=== PATIENT | female | born 1960 | race Caucasian/White ===

== ENCOUNTER 2022-03-19 16:35 | Outpatient (CLI) | payer BC, SELFPAY ==
--- NOTE | 2022-03-19 16:45 | CRLHL7_ITS ---
For Patients: As a result of the Century Cures Act, medical imaging exams and procedure reports are released immediately into your electronic medical record. You may view this report before your referring provider. If you have questions, please contact your health care provider. BILATERAL SCREENING MAMMOGRAM WITH COMPUTER-AIDED DETECTION AND TOMOSYNTHESIS TECHNIQUE: CC and MLO views were obtained. These mammographic images have been obtained using full-field digital technique. These mammographic images were interpreted with the benefit of computer-aided detection. Breast Tomosynthesis was used in this interpretation. COMPARISON FILM: 02/28/21, 02/18/20, 02/11/19. FINDINGS: The breasts are almost entirely fatty IMPRESSION: There is no radiographic evidence for malignancy. ASSESSMENT: BI-RADS Category 1: Negative RECOMMENDATION: Routine screening mammogram in 1 year. A lay language report of this examination will be provided to the patient. Milton Campo M.D. Diagnostic Radiologist [email or web address] Transcribed: 4:07 pm DW/Dictated by: Milton Campo MD @ 03/20/2022 1:14:00 PM (Electronically Signed)
== END 2022-03-19 16:36 | disposition home or self-care (01) ==
PROVIDERS: PCP Family Medicine; Visit Provider Family Medicine
DX: Z12.31 Encounter for screening mammogram for malignant neoplasm of breast (principal)
CPT/HCPCS: 77063; 77067

== ENCOUNTER 2022-05-23 17:49 | Emergency (ER) | payer BC, SELFPAY ==
[2022-05-23] VITALS (7 sets, daily range): BP systolic 126–137; BP diastolic 77–85; PULSE 97–117; RESP 20–21; TEMP 37.7; O2SAT 96–98; BMI 37.9
--- NOTE | 2022-05-23 18:55 | ED_ITS ---
HPI - General Adult General Chief complaint: Abdominal Pain Stated complaint: Tobiasrea, Vomiting Time Seen by Provider: 05/23/22 18:49 History of Present Illness HPI narrative: This 62-year-old female comes in reporting vomiting and diarrhea throughout the course of this day. She states that she has had numerous occasions of each and feels like her mouth is dry. She used a thermometer at home and measured a temperature in her ear at 103? F. She has not taken any medicines. She arrives here with a temperature at 99.9? F. Her heart rate is increased with a pulse of 117 beats per minute. Prior to this she has been in good health. She does not report much abdominal discomfort. She denies having any blood in the toilet. Related Data Previous Rx's Medication Instructions Recorded losartan 50 mg tablet 50 mg PO QDAY #60 tabs 04/29/22 simvastatin 20 mg tablet 20 mg PO QHS #60 tabs 04/29/22 ondansetron HCl 4 mg tablet 4 mg PO Q6H #20 tabs 05/23/22 Allergies Allergy/AdvReac Type Severity Reaction Status Date / Time codeine Allergy Intermediate Nausea Verified 05/23/22 17:57 hydrochlorothiazide Allergy Intermediate pruritic Verified 05/23/22 17:57 rash lisinopril Allergy Intermediate Cough Uncoded 04/29/22 15:36 Review of Systems Status of ROS: Reports: 10 or more systems reviewed and unremarkable except as noted in History and below Narrative: Constitutional: No fevers, no weight gain or loss. Eyes: No discharge. No vision changes. HENT: No congestion, no sore throat, no ear pain. Cardiovascular: No chest pain, no palpitations. Respiratory: No shortness of breath, no wheezes, no cough. Gastrointestinal: Recurrent vomiting and diarrhea. Genitourinary: No dysuria, no hematuria. Musculoskeletal: Normal range of motion. Skin: No rashes, no pruritis. Neurological: No dizziness, weakness, sensory change, speech change. Endo/Heme/Allergies: No bruising or bleeding. No polydipsia. Pysch: no suicidality, no anxiety, no insomnia. All other systems reviewed and are negative. PFSH PFSH Social History Smoking Status: Never smoker Do you use any of these nicotine containing products: None Second hand tobacco smoke exposure: No How often do you have a drink containing alcohol: never How often do you have six or more drinks on one occasion: Never AUDIT-C Alcohol total score: 0 Non-prescribed substance use: denies use service: No Exam Narrative: Exam Narrative: Constitutional: Well-developed, well-nourished, no acute distress. HEENT: Normocephalic, atraumatic. Neck: Normal range of motion. Nontender. Supple. Heart: Regular. No murmurs. Tachycardia, rate 117 beats per minute. Intact distal pulses. Lungs: Clear to auscultation. No chest discomfort. No wheezes, rhonchi, or rales. Abdomen: Normal bowel sounds. Nontender. No rebound tenderness. Genitalia: Deferred. Back: No midline tenderness. Normal range of motion. Extremities: Normal range of motion. No injury. Skin: Intact. No rash. Warm. No erythema or pallor. Neurologic: No altered sensation. No weakness. Alert and oriented. Psychiatric: No suicidality. No anxiety or depression. No insomnia. Nursing notes and vitals signs are reviewed. Const: Vital Signs, click to edit/add: Vital Signs - 24 hr 05/23/22 17:54 05/23/22 19:32 05/23/22 19:32 Temperature 99.9 F H Pulse Rate 99 Pulse Rate [Pulse Oximeter] 117 H 101 H Respiratory Rate 21 20 Blood Pressure 126/83 Blood Pressure [Ri ght Upper Arm] 130/85 126/83 Pulse Oximetry 98 96 98 Oxygen Delivery Me thod Room Air Room Air 05/23/22 19:33 05/23/22 19:45 Temperature Pulse Rate 97 97 Pulse Rate [Pulse Oximeter] Respiratory Rate Blood Pressure Blood Pressure [Ri ght Upper Arm] Pulse Oximetry 97 96 Oxygen Delivery Me thod Course Vital Signs Vital signs: Initial Vital Signs Temperature 99.9 F H 05/23/22 17:54 Temperature Source Temporal Artery Scan 05/23/22 17:54 Pulse Rate 117 H 05/23/22 17:54 Pulse Rhythm 05/23/22 17:54 Pulse Strength 3+ Normal 05/23/22 17:54 Respiratory Rate 21 05/23/22 17:54 Blood Pressure 130/85 05/23/22 17:54 Blood Pressure Mean 100 05/23/22 17:54 Blood Pressure Position Sitting 05/23/22 17:54 Pulse Oximetry 98 05/23/22 17:54 Oxygen Delivery Method 05/23/22 17:54 Vital Signs Temperature 99.9 F H 05/23/22 17:54 Pulse Rate 117 H 05/23/22 17:54 Respiratory Rate 21 05/23/22 17:54 Blood Pressure 130/85 05/23/22 17:54 Pulse Oximetry 98 05/23/22 17:54 Oxygen Delivery Method 05/23/22 17:54 Temperature 99.9 F H 05/23/22 17:54 Pulse Rate 97 05/23/22 19:45 Respiratory Rate 20 05/23/22 19:32 Blood Pressure 126/83 05/23/22 19:32 Pulse Oximetry 96 05/23/22 19:45 Oxygen Delivery Method 05/23/22 19:32 Medical Decision Making MDM Narrative Medical decision making narrative: This patient arrives with persistent vomiting and diarrhea throughout the course of this day. An IV was established and labs were drawn. She received a L of normal saline along with 4 mg of Zofran intravenously. She no longer had any episodes of vomiting or diarrhea. She states that she is feeling better. Lab results returned with normal findings. At the time of discharge the patient appears safe for outpatient management. The treatment plan is reviewed along with written and verbal return precautions. Reasons to return and the importance of close followup were also reviewed. The patient received a prescription for Zofran. She is encouraged to use Imodium as needed and directed also. Lab Data Labs: Lab Results 05/23/22 05/23/22 Range/Units 19:20 19:20 WBC 9.97 (4.50-11.00) K/uL RBC 5.35 H (4.00-5.20) m/uL Hgb 15.1 (12.0-16.0) gm/dL Hct 44.8 (33.0-51.0) % MCV 84 (80-100) fL MCH 28 (26-34) pg MCHC 34 (32-36) gm/dL RDW Coeff of Lexii 13.1 (11.5-15.5) % Plt Count 204 (140-440) K/uL Neut % (Auto) 94.3 H (42.0-72.0) % Lymph % (Auto) 3.2 L (20-44) % [place] % (Auto) 2.3 (0.0-11.0) % Eos % (Auto) 0.0 (0.0-7.0) % Baso % (Auto) 0.1 (0.0-3.0) % Neut # (Auto) 9.40 H (1.7-7.0) K/uL Lymph # (Auto) 0.30 L (0.90-2.90) K/uL [place] # (Auto) 0.20 (0.00-0.90) K/UL Eos # (Auto) 0.00 (0.00-0.50) K/uL Baso # (Auto) 0.01 (0.00-0.30) K/uL Sodium 139 (135-149) mmol/L Potassium 3.7 (3.6-5.1) mmol/L Chloride 106 (96-114) mmol/L Carbon Dioxide 24 (20-32) mmol/L BUN 17 (7-30) mg/dL Creatinine 0.7 (0.5-1.5) mg/dL Estimated Creat Clear 80.01 Estimated GFR 99 ml/min Glucose 135 H (60-115) mg/dL Calcium 8.9 (8.4-10.6) mg/dL Discharge Plan Discharge Clinical Impression: Gastroenteritis Patient Disposition: Home, Self-Care Condition: Improved Additional Instructions: Take small sips of fluids frequently. Increase diet as tolerated. Use medication as needed and indicated for nausea. Follow up with MD or return if worsening. Prescriptions: New ondansetron HCl 4 mg tablet 4 mg PO Q6H Qty: 20 0RF No Action losartan 50 mg tablet 50 mg PO QDAY Qty: 60 0RF simvastatin 20 mg tablet 20 mg PO QHS Qty: 60 0RF Follow Up/Referrals: Dante Simons MD [Primary Care Provider] - Stand Alone Forms: [employer] Info Instructions
[2022-05-23] MEDS: ONDANSETRON 2 MG/ML inj 4 MG IVP (19:22)
[2022-05-23] MEDS: 0.9 % SODIUM CHLORIDE 1000 ml 1,000 ML IV (19:22)
[2022-05-23 19:30] LABS: Basophils Absolute Auto 0.01 K/uL (0.00-0.30); Basophils Percent Auto 0.1 % (0.0-3.0); Hematocrit 44.8 % (33.0-51.0); Hemoglobin* 15.1 gm/dL (12.0-16.0); Immature Granulocytes Abs Auto 0.01 K/uL (0.00-0.30); Immature Granulocytes Pct Auto 0.1 %; Lymphocytes Percent Auto 3.2 % (20-44); Mean Corpuscular HGB Conc 34 gm/dL (32-36); Mean Corpuscular Hemoglobin 28 pg (26-34); Mean Corpuscular Volume 84 fL (80-100); Monocytes Percent Auto 2.3 % (0.0-11.0); Neutrophils Percent Auto 94.3 % (42.0-72.0); Platelet Count* 204 K/uL (140-440); RDW Coefficient of Variation % 13.1 % (11.5-15.5); Red Blood Count 5.35 m/uL (4.00-5.20); White Blood Count* 9.97 K/uL (4.50-11.00)
[2022-05-23 19:37] LABS: Slide Review Reflex No
[2022-05-23 19:48] LABS: Chloride* 106 mmol/L (96-114)
[2022-05-23 19:49] LABS: Potassium* 3.7 mmol/L (3.6-5.1); Sodium* 139 mmol/L (135-149)
[2022-05-23 19:51] LABS: Carbon Dioxide* 24 mmol/L (20-32); Creatinine* 0.7 mg/dL (0.5-1.5); Est. Creatinine Clearance* 80.01; Estimated Glomerular Filt Rate 99 ml/min
[2022-05-23 19:52] LABS: Blood Urea Nitrogen* 17 mg/dL (7-30); Calcium* 8.9 mg/dL (8.4-10.6); Glucose* 135 mg/dL (60-115)
== END 2022-05-23 20:38 | disposition home or self-care (01) ==
PROVIDERS: Emergency Provider Emergency Medicine Emergency Medical Services; PCP Family Medicine
DX: K52.9 Noninfective gastroenteritis and colitis, unspecified (principal)
CPT/HCPCS: 36415; 80048; 85025; 96374; 99283; 99284; J2405; J7030

== ENCOUNTER 2022-07-16 08:03 | Outpatient (CLI) | payer BC, SELFPAY | END 2022-07-16 08:04 | disposition home or self-care (01) | LOC: NFLDREF 21:47 | PROVIDERS: PCP Family Medicine; Referring Provider Family Medicine; Visit Provider Family Medicine | DX: E78.5 Hyperlipidemia, unspecified (principal); I10 Essential (primary) hypertension | CPT/HCPCS: 80053; 80061 ==

== ENCOUNTER 2022-11-21 07:11 | Outpatient (CLI) | payer BC, SELFPAY ==
--- NOTE | 2022-11-21 08:30 | W.ANESCHARGE ---
Anesthesia Charges Start Date/Time Anesthesia Start Date: 11/21/22 Anesthesia Start Time: 07:55 Stop Date/Time Anesthesia Stop Date: 11/21/22 Anesthesia Stop Time: 08:28
--- NOTE | 2022-11-21 08:35 | W.ANESCHARGE ---
Anesthesia Charges Start Date/Time Anesthesia Start Date: 11/21/22 Anesthesia Start Time: 07:55 Stop Date/Time Anesthesia Stop Date: 11/21/22 Anesthesia Stop Time: 08:28
== END 2022-11-21 07:12 | disposition home or self-care (01) ==
LOC: OP CLINIC 07:11
PROVIDERS: PCP Family Medicine; Visit Provider Surgery
DX: Z12.11 Encounter for screening for malignant neoplasm of colon (principal); K57.30 Diverticulosis of large intestine without perforation or abscess without bleeding
CPT/HCPCS: 45378; 811; 812; J2704

== ENCOUNTER 2023-09-10 20:40 | Emergency (ER) | payer BC, SELFPAY ==
[2023-09-10 21:03] VITALS: BP 177/95; PULSE 0; RESP 16; TEMP 36.1; O2SAT 98; BMI 37.9
--- NOTE | 2023-09-10 23:32 | ED_ITS ---
HPI - General Adult General Date Seen: 09/10/23 Chief complaint: Extremity Pain/Injury, Lower Stated complaint: R leg, swelling, pain and red [place] Time Seen by Provider: 09/10/23 23:21 History of Present Illness HPI narrative: This is a 63-year-old female with a history cervical radiculopathy, incisional hernia, splenomegaly, hyperlipidemia, hypertension, presents to the ER today presenting to the ER today for evaluation of a red bump on the back of her right leg. She noticed noticed this morning when she was putting her pants her felt like there was a foreign object like possibly a drier operator head she in the leg of her jeans. She does not recall having any bug bite or any specific pain at that time. She went to work today did her normal work day. this evening at about 5:15 p.m she was at home when she noticed that she had at increasingly painful, itchy burning area on the back of her right popliteal fossa. She took off her pants and noted a couple of blisters there and a reddened area on the medial aspect of the popliteal fossa. She is not having any fever or chills. No body aches. She does have a headache (not a severe headache-she says she would normally take ibuprofen for headache like this). She and her are planning on a camping trip and are planning to leave in 2 days. He encouraged to come directly to the ER so she can get treated for this so that it does not get worse or room their planned trip. She has not had any recent exposure to long grass or son. No known tick exposures. No known insect bites although it is possible that what she felt as a drier operator head sheets in her pants this morning could been a bug. She did not see one. Related Data Previous Rx's ?Medication ?Instructions ?Recorded losartan 50 mg tablet 50 mg PO QDAY #90 tabs 07/19/22 simvastatin 20 mg tablet 20 mg PO QHS #90 tabs 07/19/22 Allergies Allergy/AdvReac Type Severity Reaction Status Date / Time codeine Allergy Intermediate Nausea Verified 07/15/23 16:34 hydrochlorothiazide Allergy Intermediate pruritic Verified 07/15/23 16:34 rash lisinopril Allergy Unknown Cough Verified 07/15/23 16:34 [facility] Medical History (Updated 09/10/23 @ 23:45 by Chema Murguia MD) Encounter for annual physical exam ?Z00.00 - Encounter for general adult medical examination without abnormal findings (ICD-10) Family History (Updated 07/17/22 @ 09:31 by Angelica Tinajero ~ PSR) Mother Heart disease, Onset Age: 42 Family/Other Heart disease Social History Smoking Status: Never smoker Do you use any of these nicotine containing products: None Second hand tobacco smoke exposure: No How often do you have a drink containing alcohol: never How often do you have six or more drinks on one occasion: Never AUDIT-C Alcohol total score: 0 Non-prescribed substance use: denies use Little interest or pleasure in doing things: not at all Feeling down, depressed, or hopeless: not at all service: No Exam Narrative: Exam Narrative: Constitutional: Appears well-developed and well-nourished. Active. Non-toxic appearing. Very polite. HENT: Head: Atraumatic. No signs of injury. Nose: No nasal discharge. Mouth/Throat: Mucous membranes are moist. Pharynx is normal. Tonsils symmetric. Uvula midline. Airway patent. Eyes: Conjunctivae normal and EOM are normal. Pupils are equal, round, and reactive to light. Right eye exhibits no discharge. Left eye exhibits no discharge. No icterus. Neck: Normal range of motion. Neck supple. No adenopathy. No stridor. Cardiovascular: Normal rate and regular rhythm. No murmur heard. No murmurs, rubs, or gallops. Brisk capillary refill Pulmonary/Chest: Effort normal. No stridor. No respiratory distress. No wheezes.No rhonchi. No rales. No retractions. Abdominal: Soft. Bowel sounds are normal. No distension. No mass. There is no tenderness. There is no rebound and no guarding. Musculoskeletal: Normal range of motion. No edema. No tenderness. No deformity. Neurological: Alert. Normal strength. No cranial nerve deficit or sensory deficit. Coordination normal. GCS eye subscore is 4. GCS verbal subscore is 5. GCS motor subscore is 6. Skin: Skin is warm, , dry, pink, well perfused. No rashes other than on the posterior right leg in the popliteal fossa on the medial aspect there is a oval- shaped pruritic erythematous rash that is roughly 4 x 6 cm in dimension. In the center of this rash there is a narrow reddened indurated inflamed area that is about 0.5 cm x 2 cm in size. There are 2 vesicular lesions on this narrow inflamed to streak. No palpable fluctuance. No purulent drainage. There is some clearish liquid on the surface of the rash which turns out to be topical antibiotic ointment that the patient had applied prior to arrival. No other rashes. No hives. No desquamating lesions. Const: Vital Signs, click to edit/add: Vital Signs - 24 hr 09/10/23 21:03 Temperature 97.0 F L Pulse Rate [Left P ulse Oximeter] 0 L Respiratory Rate 16 Blood Pressure [Ri ght Upper Arm] 177/95 H Pulse Oximetry 98 Oxygen Delivery Me thod Room Air Course Vital Signs Vital signs: Initial Vital Signs Temperature 97.0 F L 09/10/23 21:03 Temperature Source Temporal Artery Scan 09/10/23 21:03 Pulse Rate 0 L 09/10/23 21:03 Pulse Rhythm Regular 09/10/23 21:03 Respiratory Rate 16 09/10/23 21:03 Blood Pressure 177/95 H 09/10/23 21:03 Blood Pressure Mean 122 H 09/10/23 21:03 Blood Pressure Position Sitting 09/10/23 21:03 Pulse Oximetry 98 09/10/23 21:03 Oxygen Delivery Method Room Air 09/10/23 21:03 Vital Signs Temperature 97.0 F L 09/10/23 21:03 Pulse Rate 0 L 09/10/23 21:03 Respiratory Rate 16 09/10/23 21:03 Blood Pressure 177/95 H 09/10/23 21:03 Pulse Oximetry 98 09/10/23 21:03 Oxygen Delivery Method Room Air 09/10/23 21:03 Temperature 97.0 F L 09/10/23 21:03 Pulse Rate 0 L 09/10/23 21:03 Respiratory Rate 16 09/10/23 21:03 Blood Pressure 177/95 H 09/10/23 21:03 Pulse Oximetry 98 09/10/23 21:03 Oxygen Delivery Method Room Air 09/10/23 21:03 Medical Decision Making MDM Narrative Medical decision making narrative: This patient presents for evaluation of painful, burning, red skin lesion on her right popliteal fossa. She 1st noticed it this evening but it may actually been present since this morning. Exam would be most suggestive for probable localized reaction to an insect bite or sting. Given the amount of pain she is having I do not think this represents erythema migrans or Lyme disease. Differential would also include inspection such as cellulitis, abscess. Would be impossible to completely exclude a bacterial cellulitis at this point. There is no palpable abscess. No evidence for any crepitus or gas in the soft tissue to suggest necrotizing infection. She is not febrile and she is hemodynamically stable. There do not appear at this time to be any complication of cellulitis including abscess, necrotizing fascitis, lymphangitis, lymphadenitis, osteomyelitis, sepsis, or shock. The patient is not immunosuppressed or diabetic. Discussed that management for bug bite would be supportive with NSAI Ds and antihistamines, ice packs and monitoring. Will also cover her cellulitis with a course of cephalexin. Cephalexin 500 mg t.i.d. for 7 days prescribed through [facility]. The patient is instructed to follow-up with primary care physician to ensure no progression and rapid resolution and given precautions to return if high fever, spread greater than 2cm outside of the marked area, worsening pain, vomiting or any other worsening. Questions answered and return precautions reviewed. Discharge Plan Discharge Clinical Impression: Cellulitis of right lower extremity Patient Disposition: Home, Self-Care Condition: Stable Instructions: Cellulitis (ED), Insect Bite or Sting (ED) Additional Instructions: As we discussed, at this time it is not clear whether this lesion is due to an insect bite or could be due to an infection. To treat for insect bite, you can use ibuprofen her Benadryl to help treat the symptoms. Use an ice pack for 20 minutes every few hours to help to reduce the itching and pain and swelling. We are going to place you on [id number] cover for possible skin infection as well. If you have worsening redness, spreading redness, worsening pain, high fever, or any concerns, please come back to the ER right away to be rechecked. If you are not clearly improved within 3-4 days, please recheck with her regular doctor (or come back to the ER). Prescriptions: No Action losartan 50 mg tablet 50 mg PO QDAY Qty: 90 4RF simvastatin 20 mg tablet 20 mg PO QHS Qty: 90 4RF Follow Up/Referrals: Dante Simons MD [Primary Care Provider] - Stand Alone Forms: [employer] Info Instructions
== END 2023-09-11 00:04 | disposition home or self-care (01) ==
LOC: ED 23:51
PROVIDERS: Emergency Provider Emergency Medicine; PCP Family Medicine
DX: L03.115 Cellulitis of right lower limb (principal)
CPT/HCPCS: 99282; 99283

== ENCOUNTER 2023-10-12 18:36 | Emergency (ER) | payer BC, SELFPAY ==
[2023-10-12 18:42] VITALS: BP 152/82; PULSE 87; RESP 14; TEMP 36.6; O2SAT 99; BMI 37.0
--- NOTE | 2023-10-12 19:08 | ED.GENADULT ---
HPI - General Adult General Chief complaint: Extremity Pain/Injury, Lower Stated complaint: left knee pain Time Seen by Provider: 10/12/23 18:55 Source: patient Mode of arrival: ambulatory Limitations: no limitations History of Present Illness HPI narrative: 63-year-old female coming in today complaining of left-sided knee pain. She states that she heard a bowling approximately 3 months ago. She felt like it was getting better however in the last week she has had increased activity in her home and the knee pain has gotten worse again. Pain is located over the lateral knee radiates into the back of the knee. Activity makes it worse, standing on her feet for long periods of time makes it worse. She denies any swelling of the extremity. No recent travel or surgery. She denies any systemic symptoms. Patient has been seen for this knee pain by primary care as well as Orthopedics. She states that x-rays were done and were negative. Related Data Home Medications ?Medication ?Instructions ?Recorded ?Confirmed aspirin 81 mg tablet,delayed 81 mg PO QDAY 09/17/23 09/17/23 release cephalexin 500 mg capsule 500 mg PO TID 09/17/23 09/17/23 Previous Rx's ?Medication ?Instructions ?Recorded losartan 50 mg tablet 50 mg PO QDAY #90 tabs 07/19/22 simvastatin 20 mg tablet 20 mg PO QHS #90 tabs 07/19/22 celecoxib 200 mg capsule 200 mg PO QDAY #14 caps 09/17/23 ketorolac 10 mg tablet 10 mg PO TID PRN pain 5 days #15 10/12/23 tabs Allergies Allergy/AdvReac Type Severity Reaction Status Date / Time codeine Allergy Intermediate Nausea Verified 09/17/23 11:34 hydrochlorothiazide Allergy Intermediate pruritic Verified 09/17/23 11:34 rash lisinopril Allergy Unknown Cough Verified 09/17/23 11:34 Review of Systems Status of ROS: Reports: 10 or more systems reviewed and unremarkable except as noted in History and below [facility] Medical History Diverticulitis of intestine ?K57.92 - Diverticulitis of intestine, part unspecified, without perforation or abscess without bleeding (ICD-10) COVID-19 ?U07.1 - COVID-19 (ICD-10) Surgical History History of incisional hernia repair ?Z98.890 - Other specified postprocedural states (ICD-10) ?Z87.19 - Personal history of other diseases of the digestive system (ICD-10) Status post ovarian cystectomy ?Z98.890 - Other specified postprocedural states (ICD-10) ?Z87.42 - Personal history of other diseases of the female genital tract (ICD-10) Family History Mother Heart disease, Onset Age: 42 Family/Other Heart disease Social History Smoking Status: Never smoker Do you use any of these nicotine containing products: None Second hand tobacco smoke exposure: No How often do you have a drink containing alcohol: never How often do you have six or more drinks on one occasion: Never AUDIT-C Alcohol total score: 0 Non-prescribed substance use: denies use Little interest or pleasure in doing things: not at all Feeling down, depressed, or hopeless: not at all service: No Exam Narrative: Exam Narrative: Well-nourished well-developed patient in no acute distress. Alert and oriented. Answers questions appropriately. Mood and affect are appropriate. Thoughts are goal oriented and rational. No tangential or magical thinking noted. Patient speaks in full sentences without needing to catch her breath. HEENT: Normocephalic atraumatic. Pupils are equally round reactive to light. Extraocular muscles are intact. Conjunctivae are moist without any icterus noted. Moist mucous membranes. Extremities: Knees have normal appearance bilaterally. There is no evidence of swelling or erythema. There is no obvious joint effusion on palpation. She has full range of motion of flexion and extension. She has no pain along the medial or lateral joint line. She has no pain with compression of the patella. No varus or valgus laxity. Anterior drawer is negative. She has normal DP and PT pulses. Const: Vital Signs, click to edit/add: Vital Signs - 24 hr 10/12/23 18:42 Temperature 97.8 F Pulse Rate [Pulse Oximeter] 87 Respiratory Rate 14 Blood Pressure [Ri ght Upper Arm] 152/82 H Pulse Oximetry 99 Oxygen Delivery Me thod Room Air Course Vital Signs Vital signs: Initial Vital Signs Temperature 97.8 F 10/12/23 18:42 Temperature Source Temporal Artery Scan 10/12/23 18:42 Pulse Rate 87 10/12/23 18:42 Pulse Rhythm Regular 10/12/23 18:42 Respiratory Rate 14 10/12/23 18:42 Blood Pressure 152/82 H 10/12/23 18:42 Blood Pressure Mean 105 10/12/23 18:42 Blood Pressure Position Sitting 10/12/23 18:42 Pulse Oximetry 99 10/12/23 18:42 Oxygen Delivery Method Room Air 10/12/23 18:42 Vital Signs Temperature 97.8 F 10/12/23 18:42 Pulse Rate 87 10/12/23 18:42 Respiratory Rate 14 10/12/23 18:42 Blood Pressure 152/82 H 10/12/23 18:42 Pulse Oximetry 99 10/12/23 18:42 Oxygen Delivery Method Room Air 10/12/23 18:42 Temperature 97.8 F 10/12/23 18:42 Pulse Rate 87 10/12/23 18:42 Respiratory Rate 14 10/12/23 18:42 Blood Pressure 152/82 H 10/12/23 18:42 Pulse Oximetry 99 10/12/23 18:42 Oxygen Delivery Method Room Air 10/12/23 18:42 Medical Decision Making MDM Narrative Medical decision making narrative: 63-year-old female with knee pain. Differential diagnosis includes arthritis, Stone cyst, minor meniscus injury. There does not appear to be any ligamentous injury given her normal physical exam. We discussed symptomatic treatment with modifying physical activity, the use of NSAIDs. Recommend she follow up she feels like she is getting worse over the next several weeks instead of better. Patient was in agreement and had no other questions. Discharge Plan Discharge Clinical Impression: Knee pain Patient Disposition: Home, Self-Care Condition: Stable Additional Instructions: Use jose wrap for support. Ok to use Ibuprofen 600-800mg three times per day as needed, always on a full stomach. If pain does not respond - okay to use Toradol. You knew this is also an anti-inflammatory that can upset the stomach, therefore this should also be used on a full stomach. Prescriptions: New ketorolac 10 mg tablet 10 mg PO TID PRN (Reason: pain) 5 Days Qty: 15 0RF No Action cephalexin 500 mg capsule 500 mg PO TID aspirin 81 mg tablet,delayed release (DR/EC) 81 mg PO QDAY celecoxib 200 mg capsule 200 mg PO QDAY Qty: 14 1RF losartan 50 mg tablet 50 mg PO QDAY Qty: 90 4RF simvastatin 20 mg tablet 20 mg PO QHS Qty: 90 4RF Follow Up/Referrals: Dante Simons MD [Primary Care Provider] - Stand Alone Forms: [facility] Info Instructions
== END 2023-10-12 19:25 | disposition home or self-care (01) ==
LOC: ED 19:17
PROVIDERS: Emergency Provider Family Medicine; PCP Family Medicine
DX: M25.562 Pain in left knee (principal)
CPT/HCPCS: 99283

== ENCOUNTER 2023-10-19 20:50 | Emergency (ER) | payer BC, SELFPAY ==
--- NOTE | 2023-10-19 21:06 | CRLHL7_ITS ---
For Patients: As a result of the Century Cures Act, medical imaging exams and procedure reports are released immediately into your electronic medical record. You may view this report before your referring provider. If you have questions, please contact your health care provider. Indication: Knee pain. Technique: Right knee 3 views. Comparison: 07/15/2023. Findings: Bones: Normal alignment. Questionable cortical irregularity of the posterior proximal fibular metaphysis. No aggressive osseous lesion. Joint spaces: Very mild medial and patellofemoral compartment degenerative changes. No joint effusion Soft tissues: Unremarkable. Impression: Questionable nondisplaced fracture of the posterior proximal fibular metaphysis. Recommend correlation with site for focal tenderness. No other acute findings. Dictated by Chema Pérez MD @ 10/19/2023 10:17:29 PM (Electronically Signed)
[2023-10-19 21:11] VITALS: BP 167/84; PULSE 80; RESP 16; TEMP 36.6; O2SAT 100; BMI 37.0
--- OUTSIDE RECORDS SUMMARY | 2023-10-19 22:01 | XMS_ITS | Clinical Summary ---
Author Organization [facility] Address [address] [place] [address] Care Team Providers Care Landing Signal Officer Name Role Phone Unavailable Primary Care Provider Unavailabl e Allergies Active Allergy Reactions Criticality Noted Date Comments Morphine And Codeine Nausea 06/12/2005 Medications Medication Sig Dispensed Refills Start Date End Date Status ASPIRIN 81 MG OR TABSIndications:Ches t pain, unspecified 1 tab po now 1 3 06/12/2005 Active Additional Information Patient not taking.Reported on 12/29/2017 TYLENOL 325 MG OR TABS 2 TABLETS EVERY 4 HOURS NEEDED Active LISINOPRIL PO Take 10 mg by mouth daily Active Cyanocobalamin (B-12) 1000 MCG CAPS Acti ve potassium 99 MG TABS Acti ve Multiple Vitamins-Minerals (MULTI FOR HER) TABS Acti ve Ibuprofen-Diphenhydr amine Cit (ADVIL PM PO) Active triamcinolone (KENALOG) 0.1 % ointment Apply topically 2 times daily Active Camphor-Menthol (SARNA EX) Active Active Problems No known active problems Immunizations Name Administration Dates Next Due TDAP Vaccine (Adacel) 10/15/2016 Family History Medical History Relation Comments Melanoma No family hx of Skin Cancer No family hx of Social History Tobacco Use Types Packs/Day Years Used Date Smoking Tobacco: Never Smokeless Tobacco: Never PHQ-2 Answer Date Recorded PHQ-2 Score 0 12/29/2017 Adolescent Education Answer Date Record ed Getting School Help Needed Not on file 01/11 Sex and Gender Information Value Date Recorded Sex Assigned at Not on file Gender Identity Not on file Sexual Orientation Not on file Last Filed Vital Signs Vital Sign Reading Time Taken Comments Blood Pressure 142/93 12/29/2017 9:40 AM CDT Pulse 98 12/29/2017 9:40 AM CDT Temperature 37.2 ??C (99 ??F) 07/02/2005 5:00 PM DOOR CUTTER Respiratory Rate 16 07/02/2005 5:00 PM DOOR CUTTER Oxygen Saturation 96% 07/02/2005 5:00 PM DOOR CUTTER Inhaled Oxygen Concentration - - Weight 100.7 kg (222 lb) 07/02/2005 5:00 PM DOOR CUTTER Height 167.6 cm (5' 6) 07/02/2005 5:00 PM DOOR CUTTER Body Mass Index 35.83 07/02/2005 5:00 PM DOOR CUTTER Plan of Treatment Not on file Sabiha Mayo Personal/Family Self [address] [address]
--- OUTSIDE RECORDS SUMMARY | 2023-10-19 22:01 | XMS_ITS | Clinical Summary ---
[facility] Address [address] [address] Care Team Providers Care Room Service Attendant Name Role Phone Doretha Quintero MD Primary Care Provider [phone] Source Comments You are receiving this document as you are listed as the primary care provider,follow-up provider, or the patient has been referred to you for consultation.This is in compliance with the Medicare and[facility] EHR Incentive Program,which states Providers who transition their patient to another setting of careor provider of care or refers their patient to another provider of care shouldprovide summary care record for each transition of care or referral. [employer] Allergies Active Allergy Reactions Criticality Noted Date Comments Codeine 11/12/2017 Medications Medication Sig Dispensed Refills Start Date End Date Status fluconazole (DIFLUCAN) 150 MG tablet Take 150 mg by mouth once a week. Active hydrOXYzine HCl (ATARAX) 25 MG tablet Take 25 mg by mouth three times a day as needed. Active hydroCHLOROthiazide (ORETIC) 12.5 MG tablet Take 12.5 mg by mouth daily. Active cyanocobalamin (VITAMIN B12) 1000 MCG tablet Take 1,000 mcg by mouth daily. Active Ibuprofen-Diphenhyd ramine Cit (ADVIL PM OR) daily at bedtime. Active Multiple Vitamin (MULTIVITAMINS OR) Active triamcinolone acetonide (KENALOG) 0.1 % ointment Apply topically two times a day. 80 g 11 11/12/2017 Active Cefadroxil (DURICEF) 500 MG capsule Take 1 Capsule by mouth two times a day. 14 Capsule 11/15/2017 Active Active Problems No known active problems Social History Tobacco Use Types Packs/Day Years Used Date Smoking Tobacco: Never Smokeless Tobacco: Never Sex and Gender Information Value Date Recorded Sex Assigned at Not on file Gender Identity Not on file Sexual Orientation Not on file Plan of Treatment Health Maintenance Due Date Last Done Comments Cervical Cancer Screening Due 1960 Colon Cancer Screening Plan Due 1960 Hep C Screening (Preventive Services) 1960 Mammogram 1962 HIV Screening (Preventive Services) 1978 Adult Preventive Visit 1980 Cholesterol 2007 Zoster/Shingles (1 of 2) 2012 COVID-19 Vaccine (3 - 2022-2 4 season) 2022 07/22/2020, 07/01/2020 Influenza (#1) 2023 02/03/2020, 01/14/2019 DTaP/Tdap/Td (2 - Tdap) 10/15/2026 10/15/2016 HepA Aged Out No longer eligi ble based on patient's age to complete this topic HepB Aged Out No longer eligi ble based on patient's age to complete this topic Hib Aged Out No longer eligi ble based on patient's age to complete this topic IPV (Polio) Aged Out No longer eligi ble based on patient's age to complete this topic MCV4 Aged Out No longer eligi ble based on patient's age to complete this topic Pneumococcal Aged Out No longer eligi ble based on patient's age to complete this topic Care Teams Room Service Attendant Relationship Specialty Start Date End Date Doretha Quintero MD [address] [place] [address] PCP - General Family Practice 11/12/17
--- OUTSIDE RECORDS SUMMARY | 2023-10-19 22:01 | XMS_ITS | Referral Summary ---
Author Organization [facility] Address [address] [place] [address] Care Team Providers Care Salesperson Used Cars Name Role Phone Unavailable Primary Care Provider [...] Dates Next Due TDAP Vaccine (Adacel) 10/15/2016 Social History Tobacco Use Types Packs/Day Years [...] 37.2 ??C (99 ??F) 07/02/2005 5:00 PM DISTRESSER Respiratory Rate 16 07/02/2005 5:00 PM DISTRESSER Oxygen Saturation 96% 07/02/2005 5:00 PM DISTRESSER Inhaled Oxygen Concentration - - Weight 100.7 kg (222 lb) 07/02/2005 5:00 PM DISTRESSER Height 167.6 cm (5' 6) 07/02/2005 5:00 PM DISTRESSER Body Mass Index 35.83 07/02/2005 5:00 PM DISTRESSER Plan of Treatment Not on file Sabiha Mayo Personal/Family Self [address] [address]
--- OUTSIDE RECORDS SUMMARY | 2023-10-19 22:02 | XMS_ITS | Clinical Summary ---
Author Organization [facility] Address [place], [place] [address] Care Team Providers Care Echocardiography Technologist Name Role Phone Dillon Richardson MD Primary Care Provider [phone] Allergies Active Allergy Reactions Criticality Noted Date Comments Codeine Nausea And Vomiting 12/22/2006 Medications Medication Sig Dispensed Refills Start Date End Date Status cyanocobalamin 1,000 mcg tablet Take 1,000 mcg by mouth. Active losartan (COZAAR) 50 mg tablet Take 50 mg by mouth once daily. 03/20/2019 Active simvastatin (ZOCOR) 20 mg tablet Take 20 mg by mouth at bedtime. 02/15/2019 Active triamcinolone (ARISTOCORT) 0.1 % ointment Apply topically to affected area(s). 11/12/2017 Active uw-ejsuevm-roq-iron fm-FA-vitK (MULTI FOR HER) 18 mg iron-600 mcg-80 mcg tab Take by mouth. Active MAGNESIUM ORAL Take by mouth. Active POTASSIUM ORAL Take by mouth. Active albuterol HFA (PRO-AIR; VENTOLIN; PROVENTIL) 90 mcg/actuation inhalerIndications:Wh eezing,SOB (shortness of breath) Inhale 1-2 Puffs by mouth every 4 hours if needed for Shortness Of Breath or Wheezing. 1 Each 05/30/2023 Active Active Problems No known active problems Social History Tobacco Use Types Packs/Day Years Used Date Smoking Tobacco: Never Smokeless Tobacco: Never Alcohol Use Standard Drinks/Week Comments Not Currently 0 (1 standard drink = 0.6 oz pur e alcohol) Sex and Gender Information Value Date Recorded Sex Assigned at Not on file Gender Identity Not on file Sexual Orientation Not on file Obstetrics History Last Filed Vital Signs Vital Sign Reading Time Taken Comments Blood Pressure 172/82 05/30/2023 9:17 AM MEDICAL BILLING INSTRUCTOR Pulse 80 05/30/2023 9:17 AM MEDICAL BILLING INSTRUCTOR Temperature 35.9 ??C (96.7 ??F) 05/30/2023 9:17 AM CS T Respiratory Rate 18 05/30/2023 9:17 AM MEDICAL BILLING INSTRUCTOR Oxygen Saturation 94% 05/30/2023 9:17 AM MEDICAL BILLING INSTRUCTOR Inhaled Oxygen Concentration - - Weight 103 kg (227 lb) 05/30/2023 9:17 AM MEDICAL BILLING INSTRUCTOR Height 167.6 cm (5' 6) 05/30/2023 9:17 AM MEDICAL BILLING INSTRUCTOR Body Mass Index 36.64 05/30/2023 9:17 AM MEDICAL BILLING INSTRUCTOR Plan of Treatment Health Maintenance Due Date Last Done Comments Tdap 1973 Depression screening for age 12+ 1974 HIV for age 15-65 1977 Hepatitis C screening for age 18-79 1980 Tetanus booster 1982 Colonoscopy through age 75 2007 Lipids for age 45-75 2007 Mammogram for age 45-75 2007 Zoster (shingles) series for age 50+ (1 of 2) 2012 COVID-19 vaccine series (2022- season) 2022 05/11/2021, 07/22/2020, 07/01/2020 Pap test for age 21-65 03/06/2023 , 03/06/2020, 12/31/2013, Additional history exists Influenza for age 50-64 12/07/2023 BMI (ht and wt on same day) for age 18+ 05/30/2024 05/30/2023 Pneumococcal series for age 6-64 Aged Out No longer eligible based on patient's age to complete this topic Medical Devices Implanted Type Area Entry Manager Device Identifier Shelf Expiration Date Model / Serial / Lot Strip Silcn 0.75x3.5x125 [id number] - [id number] Implanted:Qty: 1 on 04/06/2019 by Clive Perales MD at [facility] Left: Eye [employer] 11/04/2025 [id number] / / [id number] Sleeve Silcn 1.00i.D.X2.1mm Od Sty70 [id number] [employer] - [id number] Implanted:Qty: 1 on 04/06/2019 by Clive Perales MD at [facility] Left: Eye [employer] 11/04/2025 [id number]# / / [id number] Procedures Procedure Name Priority Date/Time Associated Diagnosis Comments LINE OUT WORKER THIN PREP PAP SCREEN IMAGED Routine 03/06/2020 8:45 AM MEDICAL BILLING INSTRUCTOR from Last 3 Months or Most Recently Relevant to Health Maintenance Results * LINE OUT WORKER THIN PREP PAP SCREEN IMAGED (03/06/2020 8:45 AM MEDICAL BILLING INSTRUCTOR) Case Report Gynecologic Cytology Report ? Case: [id number] ? Authorizing Provider: ??Dante Simons MD ?Collected: ? 03/06/2020 0845 ? Ordering Location: ? [facility] ?Received: ?03/07/2020 0911 ? First Screen: ?Amy Larson ? Rescreen: ?Kan Pacheco ? Specimen: ?LINE OUT WORKER ThinPrep Vial Screening, Cervical/Vaginal ? 03/15/2020 9:13 AM [facility] INTERPRETATION/ RESULT NEGATIVE FOR INTRAEPITHELIAL LESION OR MALIGNANCY (NIL) (none) 03/15/2020 9:13 AM [facility] IMEN ADEQUACY Satisfactory for evaluation Endocervical component present 03/15/2020 9:13 AM [facility] HPV REQUEST HPV and PAP 03/15/2020 9:13 AM [facility] Date of LMP 03/15/2020 9:13 AM [facility] Comment:Unknown Last Pap Date 12/31/2013 03/15/2020 9:13 AM [facility] Last Pap Result 0 9:13 AM [facility] Comment:Negative Additional Information 03/15/2020 9:13 AM [facility] Comment: Interpreted at [facility], Central Laboratory - [address], [place] [address] Automated Review Successful 03/15/2020 9:13 AM [facility] Comment:Specimen processed s uccessfully by automated car worker device, ThinPrep Imaging System, [employer] ANCILLARY TESTING LINE OUT WORKER HPV Ordered, Please see separate report 03/15/2020 9:13 AM [facility] Note The pap test is a screening technique, not a diagnostic procedure. It is used primarily to screen for squamous cancers and precursor lesions. Published studies have shown that it is subject to both false negative and false positive results. The pap test should not be used as the sole means to diagnose or exclude pre-malignant and malignant lesions. 03/15/2020 9:13 AM [facility] Other (Cervical/Vagina l) 03/06/2020 8:45 AM MEDICAL BILLING INSTRUCTOR 03/07/2020 9:11 AM MEDICAL BILLING INSTRUCTOR Dante Simons MD PATHOLOGY/CYTOLOGY [facility] [address] [place] [address], from Last 3 Months or Most Recently Relevant to Health Maintenance Advance Directives * Full Code (Latest Code Status on File) Date Activated Date Inactivated Comments 04/06/2019 6:40 PM 04/06/2019 11:27 PM Care Teams Echocardiography Technologist Relationship Specialty Start Date End Date Dillon Richardson MD [address] [facility] [address] [place] [address] PCP - General 12/22/06
--- NOTE | 2023-10-19 22:17 | ED.LOWEXIN ---
HPI - Extremity Injury (Lower) General Chief Complaint: Extremity Pain/Injury, Lower Stated Complaint: left knee pain, sore, cannot put pressure Time Seen by Provider: 10/19/23 21:14 History of Present Illness HPI Narrative: This 63-year-old female comes in with left knee pain. She states that she began to have pain after bowling about 2 or 3 months ago. The pain got better but has persisted mildly since then. It became worse last week and she did follow up with [facility]. She had x-ray done there and the orthopedic surgeon said everything looks fine and this Mr. From the clinic without any further workup. She states that she had sudden onset of severe pain in her left knee when shifting positions while lying on the couch. Since then she has not been able to bear weight on her left leg. She does not report any catching or locking and does not have any report of instability. She is able to straighten her leg. Related Data Home Medications ?Medication ?Instructions ?Recorded ?Confirmed aspirin 81 mg tablet,delayed 81 mg PO QDAY 09/17/23 09/17/23 release cephalexin 500 mg capsule 500 mg PO TID 09/17/23 09/17/23 Previous Rx's ?Medication ?Instructions ?Recorded celecoxib 200 mg capsule 200 mg PO QDAY #14 caps 09/17/23 ketorolac 10 mg tablet 10 mg PO TID PRN pain 5 days #15 10/12/23 tabs losartan 50 mg tablet 50 mg PO QDAY #90 tabs 10/13/23 simvastatin 20 mg tablet 20 mg PO QHS #90 tabs 10/13/23 Allergies Allergy/AdvReac Type Severity Reaction Status Date / Time codeine Allergy Intermediate Nausea Verified 09/17/23 11:34 hydrochlorothiazide Allergy Intermediate pruritic Verified 09/17/23 11:34 rash lisinopril Allergy Unknown Cough Verified 09/17/23 11:34 Review of Systems Status of ROS: Reports: 10 or more systems reviewed and unremarkable except as noted in History and below Narrative: Constitutional: No fevers, no weight gain or loss. Eyes: No discharge. No vision changes. HENT: No congestion, no sore throat, no ear pain. Cardiovascular: No chest pain, no palpitations. Respiratory: No shortness of breath, no wheezes, no cough. Gastrointestinal: No abdominal pain, no vomiting, no diarrhea. Genitourinary: No dysuria, no hematuria. Musculoskeletal: Left knee pain as described above. Skin: No rashes, no pruritis. Neurological: No dizziness, weakness, sensory change, speech change. Endo/Heme/Allergies: No bruising or bleeding. No polydipsia. Pysch: no suicidality, no anxiety, no insomnia. All other systems reviewed and are negative. [facility] Medical History Diverticulitis of intestine ?K57.92 - Diverticulitis of intestine, part unspecified, without perforation or abscess without bleeding (ICD-10) COVID-19 ?U07.1 - COVID-19 (ICD-10) Surgical History History of incisional hernia repair ?Z98.890 - Other specified postprocedural states (ICD-10) ?Z87.19 - Personal history of other diseases of the digestive system (ICD-10) Status post ovarian cystectomy ?Z98.890 - Other specified postprocedural states (ICD-10) ?Z87.42 - Personal history of other diseases of the female genital tract (ICD-10) Family History Mother Heart disease, Onset Age: 42 Family/Other Heart disease Social History Smoking Status: Never smoker Do you use any of these nicotine containing products: None Second hand tobacco smoke exposure: No How often do you have a drink containing alcohol: never How often do you have six or more drinks on one occasion: Never AUDIT-C Alcohol total score: 0 Non-prescribed substance use: denies use Little interest or pleasure in doing things: not at all Feeling down, depressed, or hopeless: not at all service: No Exam Narrative: Exam Narrative: Constitutional: Well-developed, well-nourished, no acute distress. HEENT: Normocephalic, atraumatic. Neck: Normal range of motion. Nontender. Supple. Heart: Regular. No murmurs. Normal rate. Intact distal pulses. Lungs: Clear to auscultation. No chest discomfort. No wheezes, rhonchi, or rales. Abdomen: Normal bowel sounds. Nontender. No rebound tenderness. Genitalia: Deferred. Back: No midline tenderness. Normal range of motion. Extremities: Diffuse pain in the left knee that she reports more prominently in the posterior aspect. Skin: Intact. No rash. Warm. No erythema or pallor. Neurologic: No altered sensation. No weakness. Alert and oriented. Psychiatric: No suicidality. No anxiety or depression. No insomnia. Nursing notes and vitals signs are reviewed. Const: Vital Signs, click to edit/add: Vital Signs - 24 hr 10/19/23 21:11 Temperature 97.9 F Pulse Rate [Pulse Oximeter] 80 Respiratory Rate 16 Blood Pressure [Ri t Upper Arm] 167/84 H Pulse Oximetry 100 Oxygen Delivery Me thod Room Air Course Vital Signs Vital signs: Initial Vital Signs Temperature 97.9 F 10/19/23 21:11 Temperature Source Temporal Artery Scan 10/19/23 21:11 Pulse Rate 80 10/19/23 21:11 Respiratory Rate 16 10/19/23 21:11 Blood Pressure 167/84 H 10/19/23 21:11 Blood Pressure Mean 111 H 10/19/23 21:11 Blood Pressure Position Sitting 10/19/23 21:11 Pulse Oximetry 100 10/19/23 21:11 Oxygen Delivery Method Room Air 10/19/23 21:11 Vital Signs Temperature 97.9 F 10/19/23 21:11 Pulse Rate 80 10/19/23 21:11 Respiratory Rate 16 10/19/23 21:11 Blood Pressure 167/84 H 10/19/23 21:11 Pulse Oximetry 100 10/19/23 21:11 Oxygen Delivery Method Room Air 10/19/23 21:11 Temperature 97.9 F 10/19/23 21:11 Pulse Rate 80 10/19/23 21:11 Respiratory Rate 16 10/19/23 21:11 Blood Pressure 167/84 H 10/19/23 21:11 Pulse Oximetry 100 10/19/23 21:11 Oxygen Delivery Method Room Air 10/19/23 21:11 MDM - Extremity Injury (Lower) MDM Narrative Medical decision making narrative: This patient comes in with pain in her left knee such that she can not bear weight as described above. X-ray imaging by radiology report does show some possible findings that may suggest a fracture of the proximal fibula. A CT scan was then ordered to further evaluate this possibility. By my review there is no obvious fracture but there may be some findings a are suspicious. The patient plans to follow-up with orthopedic clinic and does not need to wait for radiology results as it will not change the treatment plan currently. She did receive crutches and Inst[employer] prescription for Fajardo. She is encouraged to follow up tomorrow with orthopedic clinic. Discharge Plan Discharge Clinical Impression: Acute pain of left knee Patient Disposition: Home w/ Parent or Adult Condition: Unchanged Additional Instructions: Use crutches as needed for ambulating. Take pain medicine also as needed and directed. Follow-up with orthopedic clinic by calling [phone] for appointment. Return if worsening. Prescriptions: No Action cephalexin 500 mg capsule 500 mg PO TID aspirin 81 mg tablet,delayed release (DR/EC) 81 mg PO QDAY celecoxib 200 mg capsule 200 mg PO QDAY Qty: 14 1RF ketorolac 10 mg tablet 10 mg PO TID PRN (Reason: pain) 5 Days Qty: 15 0RF simvastatin 20 mg tablet 20 mg PO QHS Qty: 90 0RF losartan 50 mg tablet 50 mg PO QDAY Qty: 90 0RF Follow Up/Referrals: Dante Simons MD [Primary Care Provider] - Stand Alone Forms: [employer] Instructions
--- NOTE | 2023-10-19 22:24 | CRLHL7_ITS ---
For Patients: As a result of the Cures Act, medical imaging exams and procedure reports are released immediately into your electronic medical record. You may view this report before your referring provider. If you have questions, please contact your health care provider. Indication: Injury Technique: CT of the left knee without contrast Comparison: Same day radiographs Findings: Bones: No acute fracture. No lytic or blastic lesion. Joints: Trace effusion. No malalignment. Mild tricompartmental degenerative changes appearing greatest in the medial compartment. Soft tissues: Anterior scarring. Mild soft tissue edema. Impression: No acute abnormality appreciated. Please note that all CT scans at this facility use dose modulation, iterative reconstruction, and/or weight-based dosing when appropriate to reduce radiation dose to as low as reasonably achievable. Dictated by Cesar Munson MD @ 10/19/2023 11:32:26 PM (Electronically Signed)
== END 2023-10-19 23:22 | disposition home or self-care (01) ==
PROVIDERS: Emergency Provider Emergency Medicine Emergency Medical Services; PCP Family Medicine
DX: M25.562 Pain in left knee (principal); X50.1XXA Overexertion from prolonged static or awkward postures, initial encounter; Y93.54 Activity, bowling
CPT/HCPCS: 73562; 73700; 99283; 99284

== ENCOUNTER 2023-10-20 13:50 | Outpatient (CLI) | payer BC, SELFPAY ==
--- OUTSIDE RECORDS SUMMARY | 2023-10-20 13:53 | XMS_ITS | Clinical Summary ---
Author Organization [facility] Address [address] [place] [address] Care Team Providers Care Public Works Commissioner Name Role Phone Unavailable Primary Care Provider [...] 37.2 ??C (99 ??F) 07/02/2005 5:00 PM MACHINE CLOTH MEASURER Respiratory Rate 16 07/02/2005 5:00 PM MACHINE CLOTH MEASURER Oxygen Saturation 96% 07/02/2005 5:00 PM MACHINE CLOTH MEASURER Inhaled Oxygen Concentration - - Weight 100.7 kg (222 lb) 07/02/2005 5:00 PM MACHINE CLOTH MEASURER Height 167.6 cm (5' 6) 07/02/2005 5:00 PM MACHINE CLOTH MEASURER Body Mass Index 35.83 07/02/2005 5:00 PM MACHINE CLOTH MEASURER Plan of Treatment Not on file Sabiha Mayo Personal/Family Self [address] [address]
--- OUTSIDE RECORDS SUMMARY | 2023-10-20 13:53 | XMS_ITS | Referral Summary ---
Author Organization [facility] Address [address] [place] [address] Care Team Providers Care Green Building Materials Distributor Name Role Phone Unavailable Primary Care Provider [...] 37.2 ??C (99 ??F) 07/02/2005 5:00 PM FOOD AND BEVERAGE INTERN Respiratory Rate 16 07/02/2005 5:00 PM FOOD AND BEVERAGE INTERN Oxygen Saturation 96% 07/02/2005 5:00 PM FOOD AND BEVERAGE INTERN Inhaled Oxygen Concentration - - Weight 100.7 kg (222 lb) 07/02/2005 5:00 PM FOOD AND BEVERAGE INTERN Height 167.6 cm (5' 6) 07/02/2005 5:00 PM FOOD AND BEVERAGE INTERN Body Mass Index 35.83 07/02/2005 5:00 PM FOOD AND BEVERAGE INTERN Plan of Treatment Not on file Sabiha Mayo Personal/Family Self [address] [address]
--- OUTSIDE RECORDS SUMMARY | 2023-10-20 13:53 | XMS_ITS | Clinical Summary ---
Author Organization [employer] [facility] Address [place], [place] [address] Care Team Providers Care Vacuum Bottle Assembler Name Role Phone Dillon Richardson MD Primary Care Provider [phone] Allergies Active Allergy Reactions Criticality Noted Date [...] Apply topically to affected area(s). 11/12/2017 Active to-opodpmv-edt-iron fm-FA-vitK (MULTI FOR HER) 18 mg iron-600 [...] Comments Blood Pressure 172/82 05/30/2023 9:17 AM CONCRETE PAVEMENT INSTALLER Pulse 80 05/30/2023 9:17 AM CONCRETE PAVEMENT INSTALLER Temperature 35.9 ??C (96.7 ??F) 05/30/2023 9:17 AM CS T Respiratory Rate 18 05/30/2023 9:17 AM CONCRETE PAVEMENT INSTALLER Oxygen Saturation 94% 05/30/2023 9:17 AM CONCRETE PAVEMENT INSTALLER Inhaled Oxygen Concentration - - Weight 103 kg (227 lb) 05/30/2023 9:17 AM CONCRETE PAVEMENT INSTALLER Height 167.6 cm (5' 6) 05/30/2023 9:17 AM CONCRETE PAVEMENT INSTALLER Body Mass Index 36.64 05/30/2023 9:17 AM CONCRETE PAVEMENT INSTALLER Plan of Treatment Health Maintenance Due Date [...] this topic Medical Devices Implanted Type Area Museum Preparator Device Identifier Shelf Expiration Date Model / Serial / Lot Strip Silcn 0.75x3.5x125 [id number] - [id number] Implanted:Qty: 1 on 04/06/2019 by Clive Perales MD at [facility] Left: Eye [employer] 11/04/2025 [id number] / / [id number] Sleeve Silcn 1.00i.D.X2.1mm Od Sty70 [id number] [employer] - [id number] Implanted:Qty: 1 on 04/06/2019 by Clive Perales MD at [facility] Left: Eye [employer] 11/04/2025 [id number]# / / [id number] Procedures Procedure Name Priority Date/Time Associated Diagnosis Comments LEGAL SERVICE SPECIALIST THIN PREP PAP SCREEN IMAGED Routine 03/06/2020 8:45 AM CONCRETE PAVEMENT INSTALLER from Last 3 Months or Most Recently Relevant to Health Maintenance Results * LEGAL SERVICE SPECIALIST THIN PREP PAP SCREEN IMAGED (03/06/2020 8:45 AM CONCRETE PAVEMENT INSTALLER) Case Report Gynecologic Cytology Report ? Case: [id number] ? Authorizing Provider: ??Dante Simons MD ?Collected: ? 03/06/2020 0845 ? Ordering Location: ? [facility] ?Received: ?03/07/2020 0911 ? First Screen: ?mAy Larson ? Rescreen: ?Kan Pacheco ? Specimen: ?LEGAL SERVICE SPECIALIST ThinPrep Vial Screening, Cervical/Vaginal ? 03/15/2020 9:13 AM [facility] EN[facility] INTERPRETATION/ RESULT NEGATIVE FOR INTRAEPITHELIAL LESION OR MALIGNANCY (NIL) (none) 03/15/2020 9:13 AM [facility] IMEN ADEQUACY Satisfactory for evaluation Endocervical component present 03/15/2020 9:13 AM [facility] HPV REQUEST HPV and PAP 03/15/2020 9:13 AM [facility] Date of LMP 03/15/2020 9:13 AM [facility] Comment:Unknown Last Pap Date 12/31/2013 03/15/2020 9:13 AM [facility] Last Pap Result 0 9:13 AM [facility] Comment:Negative Additional Information 03/15/2020 9:13 AM [facility] Comment: Interpreted at [facility], Central Laboratory - [address], [place] [address] Automated Review Successful 03/15/2020 9:13 AM [facility] Comment:Specimen processed s uccessfully by automated webfed offset press operator device, ThinPrep Imaging System, [employer] ANCILLARY TESTING LEGAL SERVICE SPECIALIST HPV Ordered, Please see separate report 03/15/2020 9:13 AM [facility] Note The pap test is a screening technique, not a diagnostic procedure. It is used primarily to screen for squamous cancers and precursor lesions. Published studies have shown that it is subject to both false negative and false positive results. The pap test should not be used as the sole means to diagnose or exclude pre-malignant and malignant lesions. 03/15/2020 9:13 AM [facility] Other (Cervical/Vagina l) 03/06/2020 8:45 AM CONCRETE PAVEMENT INSTALLER 03/07/2020 9:11 AM CONCRETE PAVEMENT INSTALLER Dante Simons MD PATHOLOGY/CYTOLOGY [facility] LABORATORY-CENTRAL LABORATORY [address] [place] [address], from Last 3 Months or Most Recently Relevant to Health Maintenance Advance Directives * Full Code (Latest Code Status on File) Date Activated Date Inactivated Comments 04/06/2019 6:40 PM 04/06/2019 11:27 PM Care Teams Vacuum Bottle Assembler Relationship Specialty Start Date End Date Dillon Richardson MD [address] [facility] [address] [place] [address] PCP - General 12/22/06
--- OUTSIDE RECORDS SUMMARY | 2023-10-20 13:53 | XMS_ITS | Clinical Summary ---
Author Organization [facility] Address [address], [place] [address] Care Team Providers Care Child Care Development Specialist Name Role Phone Doretha Quintero MD Primary Care Provider [phone] Source Comments You are receiving this document as you are listed as the primary care provider,follow-up provider, or the patient has been referred to you for consultation.This is in compliance with the Medicare and[facility] EHR Incentive Program,which states Providers who transition their patient to another setting of careor provider of care or refers their patient to another provider of care shouldprovide summary care record for each transition of care or referral. [place] Allergies Active Allergy Reactions Criticality Noted Date [...] age to complete this topic Care Teams Child Care Development Specialist Relationship Specialty Start Date End Date Doretha Quintero MD [address] [place] [address] PCP - General Family Practice 11/12/17
--- NOTE | 2023-10-20 14:00 | CRLHL7_ITS ---
For Patients: As a result of the Century Cures Act, medical imaging exams and procedure reports are released immediately into your electronic medical record. You may view this report before your referring provider. If you have questions, please contact your health care provider. Indication: Possible DVT Technique: Real-time longitudinal and transverse sonographic grayscale imaging with and without compression, as well as color and duplex Doppler imaging before and after augmentation, was obtained of the deep system of the left lower extremity, including the common femoral, femoral, popliteal, posterior tibial, and peroneal veins. Comparison: None. Findings: Common femoral vein: No evidence of thrombus. Femoral vein: No evidence of thrombus. Popliteal vein: No evidence of thrombus. Calf veins: Patent. Impression: No ultrasound evidence of deep venous thrombosis. Dictated by José Miguel Clements MD @ 10/20/2023 3:10:20 PM (Electronically Signed)
== END 2023-10-20 13:51 | disposition home or self-care (01) ==
LOC: US 13:51
PROVIDERS: PCP Family Medicine; Visit Provider Orthopaedic Surgery
DX: I82.409 Acute embolism and thrombosis of unspecified deep veins of unspecified lower extremity (principal)
CPT/HCPCS: 93971

== ENCOUNTER 2023-12-13 13:14 | Emergency (ER) | payer BC, SELFPAY ==
[2023-12-13 13:36] VITALS: BP 164/74; PULSE 78; RESP 22; TEMP 36.6; O2SAT 98; BMI 37.1
--- NOTE | 2023-12-13 13:46 | CRLHL7_ITS ---
For Patients: As a result of the Century Cures Act, medical imaging exams and procedure reports are released immediately into your electronic medical record. You may view this report before your referring provider. If you have questions, please contact your health care provider. INDICATION: Back pain. TECHNIQUE: Lumbar spine 3 view. COMPARISON: None. FINDINGS: Bones: Alignment is normal. Mild age-indeterminate T11 and T12 compression deformities. Otherwise, no displaced fractures or significant bone lesions. Joints: Multilevel degenerative disc disease and facet arthropathy. Soft tissues: Moderate to severe colonic stool burden. Dictated by Janes Ahn MD @ 12/13/2023 2:46:20 PM (Electronically Signed)
--- NOTE | 2023-12-13 14:19 | ED_ITS ---
HPI - Back Pain/Injury General Chief Complaint: Back Injury/Pain Stated Complaint: Lower back/R leg pain Time Seen by Provider: 12/13/23 13:28 History of Present Illness HPI Narrative: Patient is a 63-year-old woman who got out of shower today id felt the immediate onset of pain down her right leg. She has had no bowel or bladder symptoms no fever chills. She is unable to keep up with the pain at home. She comes to the ER with 8/10 pain primarily down the right buttocks into the thigh into the lateral calf. She has no left-sided symptoms. She is able to ambulate without any difficulty. She has no other neurologic symptoms. Related Data Home Medications ?Medication ?Instructions ?Recorded ?Confirmed aspirin 81 mg tablet,delayed 81 mg PO QDAY 09/17/23 11/13/23 release albuterol sulfate inhalation 10/20/23 11/13/23 ascorbic acid (vitamin C) 1,000 mg 1 g PO Q6H 10/20/23 11/13/23 capsule benzonatate 100 mg capsule 100 mg PO BID-TID PRN 10/20/23 11/13/23 cholecalciferol (vitamin D3) 25 25 mcg PO QDAY 10/20/23 11/13/23 mcg (1,000 unit) capsule cyanocobalamin (vitamin B-12) 1,000 mcg PO QDAY 10/20/23 11/13/23 1,000 mcg capsule fluticasone propion-salmeterol inhalation 10/20/23 11/13/23 ibuprofen 200 mg-diphenhydramine 1 cap PO QHS PRN 10/20/23 11/13/23 HCl 25 mg capsule magnesium oxide 400 mg PO QDAY 10/20/23 11/13/23 multivitamin (Multiple Vitamins 1 tab PO QDAY 10/20/23 11/13/23 tablet) potassium citrate PO 10/20/23 11/13/23 Previous Rx's ?Medication ?Instructions ?Recorded celecoxib 200 mg capsule 200 mg PO QDAY #14 caps 09/17/23 ketorolac 10 mg tablet 10 mg PO TID PRN pain 5 days #15 10/12/23 tabs losartan 50 mg tablet 50 mg PO QDAY #90 tabs 10/13/23 simvastatin 20 mg tablet 20 mg PO QHS #90 tabs 10/13/23 Allergies Allergy/AdvReac Type Severity Reaction Status Date / Time codeine Allergy Intermediate Nausea Verified 11/18/23 15:44 hydrochlorothiazide Allergy Intermediate pruritic Verified 11/18/23 15:44 rash lisinopril Allergy Unknown Cough Verified 11/18/23 15:44 Review of Systems Status of ROS: Reports: 10 or more systems reviewed and unremarkable except as noted in History and below PFSH [facility] Medical History Diverticulitis of intestine ?K57.92 - Diverticulitis of intestine, part unspecified, without perforation or abscess without bleeding (ICD-10) COVID-19 ?U07.1 - COVID-19 (ICD-10) Surgical History History of incisional hernia repair ?Z98.890 - Other specified postprocedural states (ICD-10) ?Z87.19 - Personal history of other diseases of the digestive system (ICD-10) Status post ovarian cystectomy ?Z98.890 - Other specified postprocedural states (ICD-10) ?Z87.42 - Personal history of other diseases of the female genital tract (ICD-10) Family History Mother Heart disease, Onset Age: 42 Family/Other Heart disease Social History Smoking Status: Never smoker Do you use any of these nicotine containing products: None Second hand tobacco smoke exposure: No How often do you have a drink containing alcohol: never How often do you have six or more drinks on one occasion: Never AUDIT-C Alcohol total score: 0 Non-prescribed substance use: denies use Little interest or pleasure in doing things: not at all Feeling down, depressed, or hopeless: not at all service: No Exam Narrative: Exam Narrative: EXAM GENERAL: Patient appears comfortable and well. EYES: No scleral icterus. LYMPH: No supraclavicular or cervical lymphadenopathy. SKIN: Visible skin seen during exam normal or with benign process only. EXT: No dependent lower extremity pedal edema. HEART: Regular rate and rhythm with no murmurs, rubs, or gallops. LUNGS: Clear to auscultation bilaterally with no crackles or wheezes. ABD: Soft, non tender, non distended. PSYCH: Good eye contact, speech is not pressured. Neurologic cranial nerves 2-12 grossly intact no focal defects. Const: Vital Signs, click to edit/add: Vital Signs - 24 hr 12/13/23 13:36 Temperature 97.9 F Pulse Rate [Pulse Oximeter] 78 Respiratory Rate 22 Blood Pressure [Ri ght Upper Arm] 164/74 H Pulse Oximetry 98 Oxygen Delivery Me thod Room Air Course Course ED Course: Patient seen and examined. X-ray of lumbar spine ordered. Vital Signs Vital signs: Initial Vital Signs Temperature 97.9 F 12/13/23 13:36 Temperature Source Temporal Artery Scan 12/13/23 13:36 Pulse Rate 78 12/13/23 13:36 Respiratory Rate 22 12/13/23 13:36 Blood Pressure 164/74 H 12/13/23 13:36 Blood Pressure Mean 104 12/13/23 13:36 Pulse Oximetry 98 12/13/23 13:36 Oxygen Delivery Method Room Air 12/13/23 13:36 Vital Signs Temperature 97.9 F 12/13/23 13:36 Pulse Rate 78 12/13/23 13:36 Respiratory Rate 22 12/13/23 13:36 Blood Pressure 164/74 H 12/13/23 13:36 Pulse Oximetry 98 12/13/23 13:36 Oxygen Delivery Method Room Air 12/13/23 13:36 Temperature 97.9 F 12/13/23 13:36 Pulse Rate 78 12/13/23 13:36 Respiratory Rate 22 12/13/23 13:36 Blood Pressure 164/74 H 12/13/23 13:36 Pulse Oximetry 98 12/13/23 13:36 Oxygen Delivery Method Room Air 12/13/23 13:36 MDM - Back Pain/Injury MDM Narrative Medical decision making narrative: Patient presents with pain on the right leg. X-ray series upon my review shows some disc space loss but no other acute abnormalities. She has a normal neurologic exam normal vital signs although she is very uncomfortable. I did give her 40 mg of IM Toradol and placed on 5 day course of prednisone as well as Vicodin for the breakthrough pain no driving or using machinery in the interim. She does have follow-up with her doctor 48 hours. Would recommend consideration PT versus MRI that time symptoms not improved. She will return if symptoms are intolerable at home. Differential diagnosis includes but not limited to spinal injury pinched nerve abscess facet inflammation. Discharge Plan Discharge Clinical Impression: Sciatica Patient Disposition: Home, Self-Care Condition: Stable Instructions: Sciatica (ED) Additional Instructions: Prednisone as directed [place] as directed Stop aspirin and Celebrex products while on prednisone. Ice Follow-up with your doctor. Activity Level: No Restrictions Discharge Diet: Regular Prescriptions: No Action aspirin 81 mg tablet,delayed release (DR/EC) 81 mg PO QDAY celecoxib 200 mg capsule 200 mg PO QDAY Qty: 14 1RF potassium citrate PO multivitamin [Multiple Vitamins] Tablet 1 tab PO QDAY magnesium oxide 400 mg magnesium capsule 400 mg PO QDAY ibuprofen-diphenhydramine HCl 200-25 mg capsule 1 cap PO QHS PRN cyanocobalamin (vitamin B-12) 1,000 mcg capsule 1,000 mcg PO QDAY cholecalciferol (vitamin D3) 25 mcg (1,000 unit) capsule 25 mcg PO QDAY ascorbic acid (vitamin C) 1,000 mg capsule 1 g PO Q6H fluticasone propion-salmeterol inhalation albuterol sulfate inhalation benzonatate 100 mg capsule 100 mg PO BID-TID PRN ketorolac 10 mg tablet 10 mg PO TID PRN (Reason: pain) 5 Days Qty: 15 0RF simvastatin 20 mg tablet 20 mg PO QHS Qty: 90 0RF losartan 50 mg tablet 50 mg PO QDAY Qty: 90 0RF Follow Up/Referrals: Dante Simons MD [Primary Care Provider] - Stand Alone Forms: [employer] Info Instructions
--- OUTSIDE RECORDS SUMMARY | 2023-12-13 14:32 | XMS_ITS | Clinical Summary ---
Author Organization [facility] Address [address], [place] [address] Care Team Providers Care Biofuels Plant Construction Worker Name Role Phone Doretha Quintero MD Primary Care Provider [phone] Source Comments You are receiving this document as you are listed as the primary care provider,follow-up provider, or the patient has been referred to you for consultation.This is in compliance with the Medicare and[facility] EHR Incentive Program,which states Providers who transition their patient to another setting of careor provider of care or refers their patient to another provider of care shouldprovide summary care record for each transition of care or referral. [employer] Allergies Active Allergy Reactions Criticality Noted Date [...] COVID-19 Vaccine (3 - 2022-2 4 season) 2023 07/22/2020, 07/01/2020 Influenza (#1) 2023 02/03/2020, 01/14/2019 [...] age to complete this topic Care Teams Biofuels Plant Construction Worker Relationship Specialty Start Date End Date Doretha Quintero MD [address] [place] [address] PCP - General Family Practice 11/12/17
--- OUTSIDE RECORDS SUMMARY | 2023-12-13 14:32 | XMS_ITS | Clinical Summary ---
Author Organization [place] Address [address] [place] [address] Care Team Providers Care Digital Computer Systems Analyst Name Role Phone Unavailable Primary Care Provider [...] 37.2 ??C (99 ??F) 07/02/2005 5:00 PM ROVING SIZER Respiratory Rate 16 07/02/2005 5:00 PM ROVING SIZER Oxygen Saturation 96% 07/02/2005 5:00 PM ROVING SIZER Inhaled Oxygen Concentration - - Weight 100.7 kg (222 lb) 07/02/2005 5:00 PM ROVING SIZER Height 167.6 cm (5' 6) 07/02/2005 5:00 PM ROVING SIZER Body Mass Index 35.83 07/02/2005 5:00 PM ROVING SIZER Plan of Treatment Not on file Sabiha Mayo Personal/Family Self [address] [address]
--- OUTSIDE RECORDS SUMMARY | 2023-12-13 14:32 | XMS_ITS | Clinical Summary ---
Author Organization [employer] [facility] Address [place], [place] [address] Care Team Providers Care Brush Worker Name Role Phone Dillon Richardson MD Primary Care Provider [phone] Allergies Active Allergy Reactions Criticality Noted Date [...] Apply topically to affected area(s). 11/12/2017 Active kb-tqntmza-sxr-iron fm-FA-vitK (MULTI FOR HER) 18 mg iron-600 [...] Comments Blood Pressure 172/82 05/30/2023 9:17 AM RECREATIONAL VEHICLE RESORT MANAGER Pulse 80 05/30/2023 9:17 AM RECREATIONAL VEHICLE RESORT MANAGER Temperature 35.9 ??C (96.7 ??F) 05/30/2023 9:17 AM CS T Respiratory Rate 18 05/30/2023 9:17 AM RECREATIONAL VEHICLE RESORT MANAGER Oxygen Saturation 94% 05/30/2023 9:17 AM RECREATIONAL VEHICLE RESORT MANAGER Inhaled Oxygen Concentration - - Weight 103 kg (227 lb) 05/30/2023 9:17 AM RECREATIONAL VEHICLE RESORT MANAGER Height 167.6 cm (5' 6) 05/30/2023 9:17 AM RECREATIONAL VEHICLE RESORT MANAGER Body Mass Index 36.64 05/30/2023 9:17 AM RECREATIONAL VEHICLE RESORT MANAGER Plan of Treatment Health Maintenance Due Date Last Done Comments Tdap 1973 Depression screening for age 12+ 1974 HIV for age 15-65 1977 Hepatitis C screening for age 18-79 1980 Tetanus booster 1982 Colonoscopy through age 75 2007 Lipids for age 45-75 2007 Mammogram for age 45-75 2007 Zoster (shingles) series for age 50+ (1 of 2) 2012 Pap test for age 21-65 03/06/2023 , 03/06/2020, 12/31/2013, Additional history exists COVID-19 vaccine series ( season) 2023 05/11/2021, 07/22/2020, 07/01/2020 Influenza for age 50-64 12/07/2023 BMI (ht and wt on same day) for age 18+ 05/30/2024 05/30/2023 Pneumococcal series for age 6-64 Aged Out No longer eligible based on patient's age to complete this topic Medical Devices Implanted Type Area Brick Shader Device Identifier Shelf Expiration Date Model / Serial / Lot Strip Silcn 0.75x3.5x125 [id number] - [id number] Implanted:Qty: 1 on 04/06/2019 by Clive Perales MD at [facility] Left: Eye [employer] 11/04/2025 [id number] / / [id number] Sleeve Silcn 1.00i.D.X2.1mm Od Sty70 [id number] [employer] - [id number] Implanted:Qty: 1 on 04/06/2019 by Clive Perales MD at [facility] Left: Eye [employer] 11/04/2025 [id number]# / / [id number] Procedures Procedure Name Priority Date/Time Associated Diagnosis Comments COMMERCIAL OCEAN CLAMMER THIN PREP PAP SCREEN IMAGED Routine 03/06/2020 8:45 AM RECREATIONAL VEHICLE RESORT MANAGER from Last 3 Months or Most Recently Relevant to Health Maintenance Results * COMMERCIAL OCEAN CLAMMER THIN PREP PAP SCREEN IMAGED (03/06/2020 8:45 AM RECREATIONAL VEHICLE RESORT MANAGER) Case Report Gynecologic Cytology Report ? Case: [id number] ? Authorizing Provider: ??Dante Simons MD ?Collected: ? 03/06/2020 0845 ? Ordering Location: ? [facility] ?Received: ?03/07/2020 0911 ? First Screen: ?Amy Larson ? Rescreen: ?Kan Pacheco ? Specimen: ?COMMERCIAL OCEAN CLAMMER ThinPrep Vial Screening, Cervical/Vaginal ? 03/15/2020 9:13 AM [facility] [employer] [facility] INTERPRETATION/ RESULT NEGATIVE FOR INTRAEPITHELIAL LESION OR MALIGNANCY (NIL) (none) 03/15/2020 9:13 AM [facility] IMEN ADEQUACY Satisfactory for evaluation Endocervical component present 03/15/2020 9:13 AM [facility] HPV REQUEST HPV and PAP 03/15/2020 9:13 AM [facility] Date of LMP 03/15/2020 9:13 AM [facility] Comment:Unknown Last Pap Date 12/31/2013 03/15/2020 9:13 AM [facility] Last Pap Result 0 9:13 AM [facility] Comment:Negative Additional Information 03/15/2020 9:13 AM [facility] Comment: Interpreted at [facility], Central Laboratory - [address], [place] [address] Automated Review Successful 03/15/2020 9:13 AM [facility] Comment:Specimen processed s uccessfully by automated commercial intelligence manager device, ThinPrep Imaging System, [employer] ANCILLARY TESTING COMMERCIAL OCEAN CLAMMER HPV Ordered, Please see separate report 03/15/2020 9:13 AM [facility] Note The pap test is a screening technique, not a diagnostic procedure. It is used primarily to screen for squamous cancers and precursor lesions. Published studies have shown that it is subject to both false negative and false positive results. The pap test should not be used as the sole means to diagnose or exclude pre-malignant and malignant lesions. 03/15/2020 9:13 AM [facility] [employer] [facility] Other (Cervical/Vagina l) 03/06/2020 8:45 AM RECREATIONAL VEHICLE RESORT MANAGER 03/07/2020 9:11 AM RECREATIONAL VEHICLE RESORT MANAGER Dante Simons MD PATHOLOGY/CYTOLOGY [facility]-CENTRAL LABORATORY [address] [place] [address], from Last 3 Months or Most Recently Relevant to Health Maintenance Advance Directives * Full Code (Latest Code Status on File) Date Activated Date Inactivated Comments 04/06/2019 6:40 PM 04/06/2019 11:27 PM Care Teams Brush Worker Relationship Specialty Start Date End Date Dillon Richardson MD [address] [facility] [address] [facility] [address] PCP - General 12/22/06
--- OUTSIDE RECORDS SUMMARY | 2023-12-13 14:32 | XMS_ITS | Referral Summary ---
Author Organization [place] Address [address] [place] [address] Care Team Providers Care Home Economics Expert Name Role Phone Unavailable Primary Care Provider [...] 37.2 ??C (99 ??F) 07/02/2005 5:00 PM OIL WELL SHOOTER Respiratory Rate 16 07/02/2005 5:00 PM OIL WELL SHOOTER Oxygen Saturation 96% 07/02/2005 5:00 PM OIL WELL SHOOTER Inhaled Oxygen Concentration - - Weight 100.7 kg (222 lb) 07/02/2005 5:00 PM OIL WELL SHOOTER Height 167.6 cm (5' 6) 07/02/2005 5:00 PM OIL WELL SHOOTER Body Mass Index 35.83 07/02/2005 5:00 PM OIL WELL SHOOTER Plan of Treatment Not on file Sabiha Mayo Personal/Family Self [address] [address]
== END 2023-12-13 14:32 | disposition home or self-care (01) ==
LOC: ED 14:31
PROVIDERS: Emergency Provider Internal Medicine; PCP Family Medicine
DX: M54.31 Sciatica, right side (principal)
CPT/HCPCS: 72100; 99283

== ENCOUNTER 2023-12-22 09:09 | Outpatient (CLI) | payer BC, SELFPAY ==
--- OUTSIDE RECORDS SUMMARY | 2023-12-24 17:28 | XMS_ITS | Referral Summary ---
Author Organization [place] Address [address] [place] [address] Care Team Providers Care Quarry Equipment Operator Name Role Phone Unavailable Primary Care Provider [...] 37.2 ??C (99 ??F) 07/02/2005 5:00 PM CONFERENCE ORGANIZER Respiratory Rate 16 07/02/2005 5:00 PM CONFERENCE ORGANIZER Oxygen Saturation 96% 07/02/2005 5:00 PM CONFERENCE ORGANIZER Inhaled Oxygen Concentration - - Weight 100.7 kg (222 lb) 07/02/2005 5:00 PM CONFERENCE ORGANIZER Height 167.6 cm (5' 6) 07/02/2005 5:00 PM CONFERENCE ORGANIZER Body Mass Index 35.83 07/02/2005 5:00 PM CONFERENCE ORGANIZER Plan of Treatment Not on file Sabiha Mayo Personal/Family Self [address] [address]
--- OUTSIDE RECORDS SUMMARY | 2023-12-24 17:28 | XMS_ITS | Clinical Summary ---
Author Organization [facility] [facility] Address [place], [place] [address] Care Team Providers Care Accounting Consultant Name Role Phone Dillon Richardson MD Primary Care Provider [phone] Allergies Active Allergy Reactions Criticality Noted Date [...] Apply topically to affected area(s). 11/12/2017 Active sk-znbgbmi-xcu-iron fm-FA-vitK (MULTI FOR HER) 18 mg iron-600 [...] Comments Blood Pressure 172/82 05/30/2023 9:17 AM HOUSING GRANT ANALYST Pulse 80 05/30/2023 9:17 AM HOUSING GRANT ANALYST Temperature 35.9 ??C (96.7 ??F) 05/30/2023 9:17 AM CS T Respiratory Rate 18 05/30/2023 9:17 AM HOUSING GRANT ANALYST Oxygen Saturation 94% 05/30/2023 9:17 AM HOUSING GRANT ANALYST Inhaled Oxygen Concentration - - Weight 103 kg (227 lb) 05/30/2023 9:17 AM HOUSING GRANT ANALYST Height 167.6 cm (5' 6) 05/30/2023 9:17 AM HOUSING GRANT ANALYST Body Mass Index 36.64 05/30/2023 9:17 AM HOUSING GRANT ANALYST Plan of Treatment Health Maintenance Due Date [...] this topic Medical Devices Implanted Type Area Community Ambassador Device Identifier Shelf Expiration Date Model / Serial / Lot Strip Silcn 0.75x3.5x125 [id number] - [id number] Implanted:Qty: 1 on 04/06/2019 by Clive Perales MD at [facility] Left: Eye [employer] 11/04/2025 [id number] / / [id number] Sleeve Silcn 1.00i.D.X2.1mm Od Sty70 [id number] [employer] - [id number] Implanted:Qty: 1 on 04/06/2019 by Clive Perales MD at [facility] Left: Eye [employer] 11/04/2025 [id number]# / / [id number] Procedures Procedure Name Priority Date/Time Associated Diagnosis Comments FITTER HELPER THIN PREP PAP SCREEN IMAGED Routine 03/06/2020 8:45 AM HOUSING GRANT ANALYST from Last 3 Months or Most Recently Relevant to Health Maintenance Results * FITTER HELPER THIN PREP PAP SCREEN IMAGED (03/06/2020 8:45 AM HOUSING GRANT ANALYST) Case Report Gynecologic Cytology Report ? Case: [id number] ? Authorizing Provider: ??Dante Simons MD ?Collected: ? 03/06/2020 0845 ? Ordering Location: ? [facility] ?Received: ?03/07/2020 0911 ? First Screen: ?Amy Larson ? Rescreen: ?Kan Pacheco ? Specimen: ?FITTER HELPER ThinPrep Vial Screening, Cervical/Vaginal ? 03/15/2020 9:13 AM [facility] St[employer] [facility] ENTRAL LABORATORY INTERPRETATION/ RESULT NEGATIVE FOR INTRAEPITHELIAL LESION OR MALIGNANCY (NIL) (none) 03/15/2020 9:13 AM [email or web address] ENTRAR LABORATORY IMEN ADEQUACY Satisfactory for evaluation Endocervical component present 03/15/2020 9:13 AM [facility] [[email or web address] ENTRAR LABORATORY HPV REQUEST HPV and PAP 03/15/2020 9:13 AM [facility] [[email or web address] ENTRAL LABORATORY Date of LMP 03/15/2020 9:13 AM [facility] [[email or web address] ENTRAL LABORATORY Comment:Unknown Last Pap Date 12/31/2013 03/15/2020 9:13 AM [facility] [[email or web address] ENTRAL LABORATORY Last Pap Result 0 9:13 AM [facility] [[email or web address] ENTRAL LABORATORY Comment:Negative Additional Information 03/15/2020 9:13 AM [facility] [[email or web address] ENTRAR LABORATORY Comment: Interpreted at [facility] Central Laboratory - [address], [place] [address] Automated Review Successful 03/15/2020 9:13 AM [facility] [[email or web address] ENTRAR LABORATORY Comment:Specimen processed s uccessfully by automated flash drier operator device, ThinPrep Imaging System, [employer] ANCILLARY TESTING FITTER HELPER HPV Ordered, Please see separate report 03/15/2020 9:13 AM [facility] [[email or web address] ENTRAR LABORATORY Note The pap test is a screening technique, not a diagnostic procedure. It is used primarily to screen for squamous cancers and precursor lesions. Published studies have shown that it is subject to both false negative and false positive results. The pap test should not be used as the sole means to diagnose or exclude pre-malignant and malignant lesions. 03/15/2020 9:13 AM [facility] [employer] [facility] ENTRAL LABORATORY Other (Cervical/Vagina l) 03/06/2020 8:45 AM HOUSING GRANT ANALYST 03/07/2020 9:11 AM HOUSING GRANT ANALYST Dante Simons MD PATHOLOGY/CYTOLOGY [facility]-CENTRAL LABORATORY [address] [place] [address], from Last 3 Months or Most Recently Relevant to Health Maintenance Advance Directives * Full Code (Latest Code Status on File) Date Activated Date Inactivated Comments 04/06/2019 6:40 PM 04/06/2019 11:27 PM Care Teams Accounting Consultant Relationship Specialty Start Date End Date Dillon Richardson MD [address] [facility] [address] [facility] [place] [address] PCP - General 12/22/06
--- OUTSIDE RECORDS SUMMARY | 2023-12-24 17:28 | XMS_ITS | Clinical Summary ---
Author Organization [facility] Address [address], [place] [address] Care Team Providers Care Maths Tutor Name Role Phone Doretha Quintero MD Primary Care Provider [phone] Source Comments You are receiving this document as you are listed as the primary care provider,follow-up provider, or the patient has been referred to you for consultation.This is in compliance with the Medicare and[facility] EHR Incentive Program,which states Providers who transition their patient to another setting of careor provider of care or refers their patient to another provider of care shouldprovide summary care record for each transition of care or referral. [employer] Allergies Active Allergy Reactions Criticality Noted Date [...] of 2) 2012 COVID-19 Vaccine (3 - 2023-2 5 season) 2023 07/22/2020, 07/01/2020 Influenza (#1) 2023 02/03/2020, 01/14/2019 DTaP/Tdap/Td (2 - Tdap) 10/15/2026 10/15/2016 RSV (1 - 1-dose 75+ series) 2037 HepA Aged Out No longer eligi ble [...] age to complete this topic Care Teams Maths Tutor Relationship Specialty Start Date End Date Doretha Quintero MD [address] [place] [address] PCP - General Family Practice 11/12/17
--- OUTSIDE RECORDS SUMMARY | 2023-12-24 17:28 | XMS_ITS | Clinical Summary ---
Author Organization [facility] Address [address] [place] [address] Care Team Providers Care Chargemaster Specialist Name Role Phone Unavailable Primary Care Provider [...] 37.2 ??C (99 ??F) 07/02/2005 5:00 PM CATALOGUE CLERK Respiratory Rate 16 07/02/2005 5:00 PM CATALOGUE CLERK Oxygen Saturation 96% 07/02/2005 5:00 PM CATALOGUE CLERK Inhaled Oxygen Concentration - - Weight 100.7 kg (222 lb) 07/02/2005 5:00 PM CATALOGUE CLERK Height 167.6 cm (5' 6) 07/02/2005 5:00 PM CATALOGUE CLERK Body Mass Index 35.83 07/02/2005 5:00 PM CATALOGUE CLERK Plan of Treatment Not on file Sabiha Mayo Personal/Family Self [address] [address]
== END 2023-12-22 09:10 | disposition home or self-care (01) ==
LOC: NFLDREF 12-24 17:27
PROVIDERS: PCP Family Medicine; Referring Provider Family Medicine; Visit Provider Family Medicine
DX: I10 Essential (primary) hypertension (principal); E78.5 Hyperlipidemia, unspecified; R53.83 Other fatigue; M54.10 Radiculopathy, site unspecified
CPT/HCPCS: 80053; 80061; 84443

== ENCOUNTER 2024-02-27 13:45 | Outpatient (RCR) | payer BC, SELFPAY | END 2024-05-03 15:31 | disposition home or self-care (01) | PROVIDERS: PCP Family Medicine; Visit Provider Orthopaedic Surgery | DX: S83.242D Other tear of medial meniscus, current injury, left knee, subsequent encounter (principal); M17.12 Unilateral primary osteoarthritis, left knee; M54.10 Radiculopathy, site unspecified; M54.50 Low back pain, unspecified; M62.81 Muscle weakness (generalized); Z51.89 Encounter for other specified aftercare | CPT/HCPCS: 97012; 97110; 97140; 97161; 97530 ==

== ENCOUNTER 2024-03-08 16:50 | Outpatient (CLI) | payer BC, SELFPAY ==
--- OUTSIDE RECORDS SUMMARY | 2024-03-08 16:52 | XMS_ITS | Clinical Summary ---
Author Organization [facility] Address [address] [place] [address] Care Team Providers Care Executive Administrative Assistant Name Role Phone Unavailable Primary Care Provider Unavailabl e Allergies Active Allergy Reactions Criticality Noted Date Comments Morphine And Codeine Nausea 06/12/2005 Medications ASPIRIN 81 MG OR TABSIndications: Chest pain, unspecified 1 tab po now 1 3 6 Active Additional Information Patient not taking.Reported on 12/29/2017 TYLENOL 325 MG OR TABS 2 TABLETS EVERY 4 HOURS NEEDED Active LISINOPRIL PO Take 10 mg by mouth daily Active Cyanocobalamin (B-12) 1000 MCG CAPS Active potassium 99 MG TABS Active Multiple Vitamins-Mineral s (MULTI FOR HER) TABS Active Ibuprofen-Diphen hydramine Cit (ADVIL PM PO) Active triamcinolone (KENALOG) [...] School Help Needed Not on file 01/11 Comments No Sex and Gender Information Value Date Recorded Sex Assigned at Not on file Legal Sex Female 3:05 AM PSYCHOLOGY TECH Gender Identity Not on file Sexual Orientation Not on file Last Filed Vital Signs Vital Sign Reading Time Taken Comments Blood Pressure 142/93 12/29/2017 9:40 AM CDT Pulse 98 12/29/2017 9:40 AM CDT Temperature 37.2 C (99 F) 07/02/2005 5:00 PM PSYCHOLOGY TECH Respiratory Rate 16 07/02/2005 5:00 PM PSYCHOLOGY TECH Oxygen Saturation 96% 07/02/2005 5:00 PM PSYCHOLOGY TECH Inhaled Oxygen Concentration - - Weight 100.7 kg (222 lb) 07/02/2005 5:00 PM PSYCHOLOGY TECH Height 167.6 cm (5' 6) 07/02/2005 5:00 PM PSYCHOLOGY TECH Body Mass Index 35.83 07/02/2005 5:00 PM PSYCHOLOGY TECH Plan of Treatment Not on file Insurance [employer] [place]
--- OUTSIDE RECORDS SUMMARY | 2024-03-08 16:52 | XMS_ITS | Clinical Summary ---
Author Organization [facility] Address [place], [place] [address] Care Team Providers Care Patient Scheduling Manager Name Role Phone Dillon Richardson MD Primary Care Provider [phone] Allergies Active Allergy Reactions Criticality Noted Date [...] Apply topically to affected area(s). 11/12/2017 Active ia-lexuipd-weg-iron fm-FA-vitK (MULTI FOR HER) 18 mg iron-600 [...] Active Active Problems No known active problems Encounters Date Type Department Care Team Description 01/02/2024 9:25 AM CDT Ancillary Procedure [facility] [address] [facility] [address] [place], [place] [id number] 12/29/[address] [facility] [place] [address] [place] [address] Jyotsna Mckeon PA <No scans attached> from Last 3 Months Social History Tobacco Use Types Packs/Day Years [...] Comments Blood Pressure 172/82 05/30/2023 9:17 AM IS ANALYST Pulse 80 05/30/2023 9:17 AM IS ANALYST Temperature 35.9 C (96.7 F) 05/30/2023 9:17 AM IS ANALYST Respiratory Rate 18 05/30/2023 9:17 AM IS ANALYST Oxygen Saturation 94% 05/30/2023 9:17 AM IS ANALYST Inhaled Oxygen Concentration - - Weight 103 kg (227 lb) 05/30/2023 9:17 AM IS ANALYST Height 167.6 cm (5' 6) 05/30/2023 9:17 AM IS ANALYST Body Mass Index 36.64 05/30/2023 9:17 AM IS ANALYST Plan of Treatment Health Maintenance Due [...] 12/31/2013, Additional history exists COVID-19 vaccine series (2023- season) 2023 05/11/2021, 07/22/2020, 07/01/2020 Influenza for age 50-64 12/07/2023 BMI (ht and wt on same day) for age 18+ 05/30/2024 05/30/2023 Pneumococcal series for age 6-64 Aged Out No longer eligible based on patient's age to complete this topic Medical Devices Implanted Type Area Signs And Displays Salesperson Device Identifier Shelf Expiration Date Model / Serial / Lot Strip Silcn 0.75x3.5x125 [id number] - [id number] Implanted:Qty: 1 on 04/06/2019 by Clive Perales MD at [facility] Left: Eye [employer] 11/04/2025 [id number]# / / [id number] Sleeve Silcn 1.00i.D.X2.1mm Od Sty70 S3018 [employer] - [id number] Implanted:Qty: 1 on 04/06/2019 by Clive Perales MD at [facility] Left: Eye [employer] 11/04/2025 [id number]# / / [id number] Procedures Procedure Name Priority Date/Time Associated Diagnosis Comments XR SPINE LUMBAR 2 VIEWS FLEXION EXTENSION Routine 01/02/2024 9:35 AM CDT Low back pain, unspecified back pain laterality, unspecified chronicity, unspecified whether sciatica present EDGE KITTER THIN PREP PAP SCREEN IMAGED Routine 03/06/2020 8:45 AM IS ANALYST from Last 3 Months or Most Recently Relevant to Health Maintenance Results * XR SPINE LUMBAR 2 VIEWS FLEXION EXTENSION (01/02/2024 9:35 AM CDT) Anatomical Region Laterality Modality Spine, LUMBAR SPINE Digital Radi ography 01/02/2024 8:14 PM CDT Narrative 01/02/2024 8:14 PM CDT For Patients: As a result of the Century Cures Act, medical imaging exams and procedure reports are released immediately into your electronic medical record. You may view this report before your referring provider. If you have questions, please contact your health care provider. Indication: Low back pain. Technique: Flexion and extension lateral radiographs of the lumbar spine were obtained. Comparison: None available. Findings: There is grade 1, approximate 5 mm anterolisthesis of L4 on L5 noted on flexion. Anterolisthesis reduces only approximately 1 mm on extension view. Trace anterolisthesis L2 on L3, improves on extension. Moderate disc height loss and degeneration at L2-3 and L3-4. Mild chronic appearing superior endplate deformities of T11 and T12. Impression: 1. Trace anterolisthesis L2 on L3 and grade 1 anterolisthesis L4 on L5 noted on flexion imaging, reducing on extension views. 2. Mild chronic appearing superior endplate compression deformities of T11 and T12. 3. Moderate multilevel spondylosis. Dictated by Grayson Hernandez MD @ 01/02/2024 8:14:27 PM (Electronically Signed) Procedure Note Grayson Hernandez, DO - 01/02/2024 For Patients: As a result of the Cures Act, medical imagingexams and procedure reports are released immediately into your electronicmedical record. You may view this report before your referring provider.If you have questions, please contact your health care provider. Indication: Low back pain. Technique: Flexion and extension lateral radiographs of the lumbar spine wereobtained. Comparison: None available. Findings: There is grade 1, approximate 5 mm anterolisthesis of L4 on L5 noted onflexion. Anterolisthesis reduces only approximately 1 mm on extensionview. Trace anterolisthesis L2 on L3, improves on extension. Moderate discheight loss and degeneration at L2-3 and L3-4. Mild chronic appearing superior endplate deformities of T11 and T12. Impression: 1. Trace anterolisthesis L2 on L3 and grade 1 anterolisthesis L4 on [id number] on flexion imaging, reducing on extension views. 2. Mild chronic appearing superior endplate compression deformities of T11and T12. 3. Moderate multilevel spondylosis. Dictated by Grayson Hernandez MD @ 01/02/2024 8:14:27 PM (Electronically Signed) Jyotsna [facility] * EDGE KITTER THIN PREP PAP SCREEN IMAGED (03/06/2020 8:45 AM IS ANALYST) Case Report Gynecologic Cytology Report Case: [id number] Authorizing Provider: Dante Simons MD Collected: 03/06/2020 0845 Ordering Location: [facility] Received: 03/07/2020 0911 First Screen: Amy Larson Rescreen: Kan Pacheco Specimen: EDGE KITTER ThinPrep Vial Screening, Cervical/Vaginal 03/15/2020 9:13 AM IS ANALYST [facility] INTERPRETATION/ RESULT NEGATIVE FOR INTRAEPITHELIAL LESION OR MALIGNANCY (NIL) (none) 03/15/2020 9:13 AM IS ANALYST [facility] ENTRNH LABORATORY IMEN ADEQUACY Satisfactory for evaluation Endocervical component present 03/15/2020 9:13 AM IS ANALYST [facility] LABOR[facility] HPV REQUEST HPV and PAP 03/15/2020 9:13 AM IS ANALYST [facility] ENTRAL LABORATORY Date of LMP 03/15/2020 9:13 AM IS ANALYST [facility] Comment:Unknown Last Pap Date 12/31/2013 03/15/2020 9:13 AM IS ANALYST [facility] LAB[facility] Last Pap Result 0 9:13 AM IS ANALYST [facility] LAB[facility] Comment:Negative Additional Information 03/15/2020 9:13 AM [facility]TR[facility] LABORATORY Comment: Interpreted at [employer] [facility] - [address] [facility] [address], [place] [address] Automated Review Successful 03/15/2020 9:13 AM [facility] LABORATORY Comment:Specimen processed s uccessfully by automated apprentice jockey device, ThinPrep Imaging System, [employer] ANCILLARY TESTING EDGE KITTER HPV Ordered, Please see separate report 03/15/2020 9:13 AM [facility] ENTRNH LABORATORY Note The pap test is a screening technique, not a diagnostic procedure. It is used primarily to screen for squamous cancers and precursor lesions. Published studies have shown that it is subject to both false negative and false positive results. The pap test should not be used as the sole means to diagnose or exclude pre-malignant and malignant lesions. 03/15/2020 9:13 AM [facility] Other (Cervical/Vagina l) 03/06/2020 8:45 AM IS ANALYST 03/07/2020 9:11 AM IS ANALYST Dante Simons MD PATHOLOGY/CYTOLOGY [facility] [address] [place] [address], from Last 3 Months or Most Recently Relevant to Health Maintenance Advance Directives * Full Code (Latest Code Status on File) Date Activated Date Inactivated Comments 04/06/2019 6:40 PM 04/06/2019 11:27 PM Care Teams Patient Scheduling Manager Relationship Specialty Start Date End Date Dillon Richardson MD [address] [facility] [address] [place], [place] [address] PCP - General 12/22/06
--- OUTSIDE RECORDS SUMMARY | 2024-03-08 16:52 | XMS_ITS | Referral Summary ---
Author Organization [facility] Address [address] [place] [address] Care Team Providers Care Supervisor Boarding Name Role Phone Unavailable Primary Care Provider [...] on file Legal Sex Female 3:05 AM DEPARTMENT SECRETARY Gender Identity Not on file Sexual Orientation Not on file Last Filed Vital Signs Vital Sign Reading Time Taken Comments Blood Pressure 142/93 12/29/2017 9:40 AM CDT Pulse 98 12/29/2017 9:40 AM CDT Temperature 37.2 C (99 F) 07/02/2005 5:00 PM DEPARTMENT SECRETARY Respiratory Rate 16 07/02/2005 5:00 PM DEPARTMENT SECRETARY Oxygen Saturation 96% 07/02/2005 5:00 PM DEPARTMENT SECRETARY Inhaled Oxygen Concentration - - Weight 100.7 kg (222 lb) 07/02/2005 5:00 PM DEPARTMENT SECRETARY Height 167.6 cm (5' 6) 07/02/2005 5:00 PM DEPARTMENT SECRETARY Body Mass Index 35.83 07/02/2005 5:00 PM DEPARTMENT SECRETARY Plan of Treatment Not on file Insurance [facility]
--- OUTSIDE RECORDS SUMMARY | 2024-03-08 16:52 | XMS_ITS | Continuity of Care Document ---
Author Organization [facility] Address [address] [place] [address] Phone Care Team Providers Care Business Analytics Director Name Role Phone Jyotsna Scott Unavailable Unavailable Allergies, Adverse Reactions, Alerts Substance Reaction Status Criticality hydrochlorothiazide Active No Infor mation codeine Hives, Dermatitis Active No Informa tion Medications Medication Instructions Dosage Effective Dates (start - stop) Status Comments Medrol (Quan) 4 mg tablets in a dose pack take by oral route as directed per package instructions 0.00 - Active SIMVASTATIN (unknown strength) Not Available - Active LOSARTAN POTASSIUM (unknown strength) Not Available - Active Procedures Procedure Date Office/Outpatient Visit,Est, Mod 2023 Office/Outpatient Visit,New, Mod 2023 Advance Directives Directive Yes / No Effective Date File Name No Information Encounters Encounter Description Practice Location Reason(s) For Visit Diagnoses Date Provider Providers Copied on Encounter Office/Outpat ient Visit,Est, Mod [facility], [address], [place], [id number], [place] tel:[phone] [facility] [place] Spondylolisthes is, lumbar regionOther intervertebral disc displacement, lumbar region 4 Linda Jyotsna. [facility], [address], [place], [address], [place]. tel:[phone] Referring Provider: Dante Brody [facility] [address] [place], [address]. tel:[phone] Office/Outpat ient Visit,New, [facility], [address], [facility] [place], [address], [place] tel:[phone] [facility] [place] Low back pain Sep-2 4 Linda Jyotsna. [facility], [address], [place], [address], [place]. tel:[phone] Referring Provider: Dante Brody, [facility] [address] [place], [address]. tel:[phone] Family History Family Member Type Diagnosis Age At Onset Father Problem (finding) Hypertension Mother Problem (finding) Cardiovascular disease Mother Problem (finding) Hypertension Payers Payer name Insurance type Covered republican ID Authorrayne reno(s) [facility] [id number] [id number] Social History Type Description Quantity Date Captured Comments Alcohol Use Details Unknown Caffeine Use Details Unknown Tobacco Use Status No Information Smoking Status Never smoker Non-Smoking Tobacco Use Details : No Details Available : No Details Available Sex Female Vital Signs Date / Time: Height Weight BMI Pulse Rate Blood Pressure Temperature Respiratory Rate Body Surface Area Head Circumference Head Circ. Percentile Wt./Marko. Percentile BMI percentile Pulse Ox Inhaled Ox 8:28 AM 63.50 in 101.605 kg (224.00 lbs) 39.0 6 kg/m eter (2) Chief Complaint And Reason For Visit No Information Reason For Referral Reason For Referral No Information History Of Present Illness Encounter Date Complaint History Of Prese nt Illness No Information Functional Status Date Functional Assessmen t No Information Instructions Date Instruction Additional Infor mation No Information Assessments Type Assessment Date assessment Spondylolisthesis, lumbar region assessment Other intervertebral disc displa cement, lumbar region Patient Care Teams Name Effective Dates (start - stop) Status Members No Information
--- OUTSIDE RECORDS SUMMARY | 2024-03-08 16:52 | XMS_ITS | Clinical Summary ---
Author Organization [facility] Address [address] [address] Care Team Providers Care Senior Advisory Name Role Phone Doretha Quintero MD Primary Care Provider [phone] Source Comments You are receiving this document as you are listed as the primary care provider,follow-up provider, or the patient has been referred to you for consultation.This is in compliance with the Medicare and[facility] EHR Incentive Program,which states Providers who transition their patient to another setting of careor provider of care or refers their patient to another provider of care shouldprovide summary care record for each transition of care or referral. [facility] Allergies Active Allergy Reactions Criticality Noted Date [...] on patient's age to complete this topic Infant RSV Aged Out No longer eligi ble based on patient's age to complete this topic MCV4 Aged Out No longer eligi ble based on patient's age to complete this topic Pneumococcal Aged Out No longer eligi ble based on patient's age to complete this topic Care Teams Senior Advisory Relationship Specialty Start Date End Date Doretha Quintero MD [address] [place], [place] [id number] PCP - General Family Practice 11/12/17
[2024-03-20 02:39] LABS: HPV Source Cervix; HPV, High Risk by TMA Not Detected
== END 2024-03-08 16:51 | disposition home or self-care (01) ==
LOC: LKVREF 16:50
PROVIDERS: PCP Family Medicine; Visit Provider Family Medicine
DX: R10.2 Pelvic and perineal pain (principal)
CPT/HCPCS: 87086; 87624; 87625; 88141; 88142

== ENCOUNTER 2024-03-10 16:31 | Outpatient (CLI) | payer BC, SELFPAY ==
--- OUTSIDE RECORDS SUMMARY | 2024-03-10 16:34 | XMS_ITS | Clinical Summary ---
Author Organization [facility] Address [address] [place] [address] Care Team Providers Care Household Cook Name Role Phone Unavailable Primary Care Provider [...] on file Legal Sex Female 3:05 AM MATERIAL HANDLER FLOORPERSON Gender Identity Not on file Sexual Orientation Not on file Last Filed Vital Signs Vital Sign Reading Time Taken Comments Blood Pressure 142/93 12/29/2017 9:40 AM CDT Pulse 98 12/29/2017 9:40 AM CDT Temperature 37.2 C (99 F) 07/02/2005 5:00 PM MATERIAL HANDLER FLOORPERSON Respiratory Rate 16 07/02/2005 5:00 PM MATERIAL HANDLER FLOORPERSON Oxygen Saturation 96% 07/02/2005 5:00 PM MATERIAL HANDLER FLOORPERSON Inhaled Oxygen Concentration - - Weight 100.7 kg (222 lb) 07/02/2005 5:00 PM MATERIAL HANDLER FLOORPERSON Height 167.6 cm (5' 6) 07/02/2005 5:00 PM MATERIAL HANDLER FLOORPERSON Body Mass Index 35.83 07/02/2005 5:00 PM MATERIAL HANDLER FLOORPERSON Plan of Treatment Not on file Insurance [employer] [place]
--- OUTSIDE RECORDS SUMMARY | 2024-03-10 16:34 | XMS_ITS | Clinical Summary ---
Author Organization [facility] Address [place], [place] [address] Care Team Providers Care Votator Machine Operator Name Role Phone Dillon Richardson MD Primary Care Provider [phone] Allergies Active Allergy Reactions Criticality Noted Date [...] Apply topically to affected area(s). 11/12/2017 Active ho-uikpajt-cpd-iron fm-FA-vitK (MULTI FOR HER) 18 mg iron-600 [...] Description 01/02/2024 9:25 AM CDT Ancillary Procedure [facility] [address] [facility] [address] [place], [place] [id number] 12/29/2023 Orders Only [facility] [address] [place] [address] Jyotsna Mckeon PA <No scans [...] Comments Blood Pressure 172/82 05/30/2023 9:17 AM CHANGE OVER Pulse 80 05/30/2023 9:17 AM CHANGE OVER Temperature 35.9 C (96.7 F) 05/30/2023 9:17 AM CHANGE OVER Respiratory Rate 18 05/30/2023 9:17 AM CHANGE OVER Oxygen Saturation 94% 05/30/2023 9:17 AM CHANGE OVER Inhaled Oxygen Concentration - - Weight 103 kg (227 lb) 05/30/2023 9:17 AM CHANGE OVER Height 167.6 cm (5' 6) 05/30/2023 9:17 AM CHANGE OVER Body Mass Index 36.64 05/30/2023 9:17 AM CHANGE OVER Plan of Treatment Health Maintenance Due Date [...] this topic Medical Devices Implanted Type Area Interior Design Principal Device Identifier Shelf Expiration Date Model / Serial / Lot Strip Silcn 0.75x3.5x125 [id number] - [id number] Implanted:Qty: 1 on 04/06/2019 by Clive Perales MD at [facility] Left: Eye [employer] 11/04/2025 [id number] / / [id number] Sleeve Silcn 1.00i.D.X2.1mm Od [id number] [id number] [employer] - [id number] Implanted:Qty: 1 on 04/06/2019 by Clive Perales MD at [facility] Left: Eye [employer] 11/04/2025 [id number] / / [id number] Procedures Procedure Name Priority Date/Time Associated Diagnosis Comments XR SPINE LUMBAR 2 VIEWS FLEXION EXTENSION Routine 01/02/2024 9:35 AM CDT Low back pain, unspecified back pain laterality, unspecified chronicity, unspecified whether sciatica present VASCULAR ULTRASOUND TECHNICIAN THIN PREP PAP SCREEN IMAGED Routine 03/06/2020 8:45 AM CHANGE OVER from Last 3 Months or Most Recently [...] L3 and grade 1 anterolisthesis L4 on F8luwwm on flexion imaging, reducing on extension views. 2. Mild chronic appearing superior endplate compression deformities of T11and T12. 3. Moderate multilevel spondylosis. Dictated by Grayson Hernandez MD @ 01/02/2024 8:14:27 PM (Electronically Signed) Jyotsna [facility] * VASCULAR ULTRASOUND TECHNICIAN THIN PREP PAP SCREEN IMAGED (03/06/2020 8:45 AM CHANGE OVER) Case Report Gynecologic Cytology Report Case: [id number] Authorizing Provider: Dante Simons MD Collected: 03/06/2020 0845 Ordering Location: [facility] Received: 03/07/2020 0911 First Screen: Amy Larson Rescreen: Kan Pacheco Specimen: VASCULAR ULTRASOUND TECHNICIAN ThinPrep Vial Screening, Cervical/Vaginal 03/15/2020 9:13 AM [facility] INTERPRETATION/ RESULT NEGATIVE FOR INTRAEPITHELIAL LESION OR MALIGNANCY (NIL) (none) 03/15/2020 9:13 AM CHANGE OVER [facility] IMEN ADEQUACY Satisfactory for evaluation Endocervical component present 03/15/2020 9:13 AM CHANGE OVER [facility] HPV REQUEST HPV and PAP 03/15/2020 9:13 AM CHANGE OVER [facility] Date of LMP 03/15/2020 9:13 AM CHANGE OVER [facility] Comment:Unknown Last Pap Date 12/31/2013 03/15/2020 9:13 AM CHANGE OVER [facility] Last Pap Result 0 9:13 AM CHANGE OVER [facility] Comment:Negative Additional Information 03/15/2020 9:13 AM [facility] Comment: Interpreted at [facility] [email or web address] [facility] - [address] [facility] [address] [address] Automated Review Successful 03/15/2020 9:13 AM [facility] Comment:Specimen processed s uccessfully by automated senior business analyst device, ThinPrep Imaging System, [employer] ANCILLARY TESTING VASCULAR ULTRASOUND TECHNICIAN HPV Ordered, Please see separate report 03/15/2020 9:13 AM [facility] Note The pap test [...] pre-malignant and malignant lesions. 03/15/2020 9:13 AM [facility] Other (Cervical/Vagina l) 03/06/2020 8:45 AM CHANGE OVER 03/07/2020 9:11 AM CHANGE OVER Dante Simons MD PATHOLOGY/CYTOLOGY [facility] [address] [place] [address], from Last 3 Months or Most Recently Relevant to Health Maintenance Advance Directives * Full Code (Latest Code Status on File) Date Activated Date Inactivated Comments 04/06/2019 6:40 PM 04/06/2019 11:27 PM Care Teams Votator Machine Operator Relationship Specialty Start Date End Date Dillon Richardson MD [address] [facility] [address] [place], [place] [address] PCP - General 12/22/06
--- OUTSIDE RECORDS SUMMARY | 2024-03-10 16:34 | XMS_ITS | Clinical Summary ---
Author Organization [facility] Address [address] [address] Care Team Providers Care Principal Systems Architect Name Role Phone Doretha Quintero MD Primary Care Provider [phone] Source Comments You are receiving this document as you are listed as the primary care provider,follow-up provider, or the patient has been referred to you for consultation.This is in compliance with the Medicare and[facility] EHR Incentive Program,which states Providers who transition their patient to another setting of careor provider of care or refers their patient to another provider of care shouldprovide summary care record for each transition of care or referral. [facility] Allergies Active Allergy Reactions Criticality Noted Date [...] age to complete this topic Care Teams Principal Systems Architect Relationship Specialty Start Date End Date Doretha Quintero MD [address] [place], [place] [id number] PCP - General Family Practice 11/12/17
--- OUTSIDE RECORDS SUMMARY | 2024-03-10 16:34 | XMS_ITS | Referral Summary ---
Author Organization [facility] Address [address] [place] [address] Care Team Providers Care Outboard Motor Assembler Name Role Phone Unavailable Primary Care Provider [...] on file Legal Sex Female 3:05 AM [employer] Gender Identity Not on file Sexual Orientation Not on file Last Filed Vital Signs Vital Sign Reading Time Taken Comments Blood Pressure 142/93 12/29/2017 9:40 AM CDT Pulse 98 12/29/2017 9:40 AM CDT Temperature 37.2 C (99 F) 07/02/2005 5:00 PM [employer]NER Respiratory Rate 16 07/02/2005 5:00 PM [employer]NER Oxygen Saturation 96% 07/02/2005 5:00 PM [employer]NER Inhaled Oxygen Concentration - - Weight 100.7 kg (222 lb) 07/02/2005 5:00 PM [employer]NER Height 167.6 cm (5' 6) 07/02/2005 5:00 PM [employer]NER Body Mass Index 35.83 07/02/2005 5:00 PM [employer]OW [employer]NER Plan of Treatment Not on file Insurance [facility] [facility]
--- OUTSIDE RECORDS SUMMARY | 2024-03-10 16:34 | XMS_ITS | Continuity of Care Document ---
Author Organization [facility] Address [address] [place] [address] Phone Care Team Providers Care Spa Manager Name Role Phone Jyotsna Scott Unavailable Unavailable [...] [facility], [address], [place], [id number], [place] tel:[phone] [facility] is, lumbar regionOther intervertebral disc displacement, lumbar region Linda Jyotsna. [facility], [address], [place], [address], [place]. tel:[phone] Referring Provider: Dante Brody [facility] [address] [place], [address]. tel:[phone] Office/Outpat ient Visit,New, [facility] [place] [place] [facility], [address], [facility] [place], [id number], [place] tel:[phone] [facility] Low back pain Sep-2 4 Linda Jyotsna. [facility], [address], [place], [address], [place]. tel:[phone] Referring Provider: Dante Brody, [facility] [address] [place], [address]. tel:[phone] Family History Family Member Type Diagnosis Age At Onset Father Problem (finding) Hypertension Mother Problem (finding) Cardiovascular disease Mother Problem (finding) Hypertension Payers Payer name Insurance type Covered constitution party ID Authorrayne reno(s) [facility] [id number] [id number] Social History Type Description Quantity Date Captured [...]
--- NOTE | 2024-03-10 16:45 | CRLHL7_ITS ---
For Patients: As a result of the Century Cures Act, medical imaging exams and procedure reports are released immediately into your electronic medical record. You may view this report before your referring provider. If you have questions, please contact your health care provider. INDICATION: Pelvic pain. COMPARISON: None available. FINDINGS: Transvaginal ultrasound examination of the female pelvis was performed. The uterus is anteverted with no evidence of mass. It measures 5.8 x 3.3 x 3.4 cm. The endometrial lining is normal in thickness at 3 mm. The ovaries can not be identified. There is no sign of free fluid in the pelvis. IMPRESSION: 1. Normal appearance of the uterus. 2. Ovaries can not be identified. Dictated by Vinod Llamas MD @ 03/10/2024 11:33:24 PM (Electronically Signed)
== END 2024-03-10 16:32 | disposition home or self-care (01) ==
LOC: US 16:32
PROVIDERS: PCP Family Medicine; Visit Provider Family Medicine
DX: R10.2 Pelvic and perineal pain (principal)
CPT/HCPCS: 76830

== ENCOUNTER 2025-03-15 09:28 | Outpatient (CLI) | payer BC, SELFPAY | END 2025-03-15 09:29 | disposition home or self-care (01) | LOC: NFLDREF 03-21 18:07 | PROVIDERS: PCP Family Medicine; Referring Provider Family Medicine; Visit Provider Family Medicine | DX: Z13.9 Encounter for screening, unspecified (principal) | CPT/HCPCS: 80053; 80061 ==